=== PATIENT | female | born 1980 | race Caucasian/White ===

== ENCOUNTER 2019-08-03 18:00 | Emergency (ER) | payer BC, SELFPAY ==
--- NOTE | ~2019-08-03 | CT_ITS ---
EXAMINATION: CT abdomen pelvis w con EXAM DATE: 08/03/2019 19:57 INDICATION: Right lower quadrant pain. TECHNIQUE: Spiral CT of the abdomen and pelvis was performed following intravenous injection of 100 m L Omnipaque 350. Axial, coronal and sagittal images were reviewed. The dose-length product (DLP) fo r this examination was 609.21 mGy-cm. The exposure was tailored according to patient size (auto mA e xposure control), and iterative reconstruction (ASIR) was used as additional dose reduction technique . Comparison is made to prior examination from 01/28/2018. FINDINGS: The liver, spleen, adrenal glands and pancreas are unremarkable. The gallbladder is contra cted but otherwise unremarkable. Portal and splenic veins are patent. Kidneys enhance symmetrically . There is no hydronephrosis. The uterus is retroverted and morphologically normal. The bladder is unremarkable. There is no retroperitoneal or pelvic lymphadenopathy. The appendix is normal. The stomach and small bowel are unremarkable. There is expected amount of c olonic stool. No free intraperitoneal gas. The heart is normal in size. There are no pericardial or pleural effusions. The lung bases are unremarkable. The bones are unremarkable. IMPRESSION: 1. No acute intra-abdominal findings. Reviewed, dictated and finalized at location A.
[2019-08-03 18:11] VITALS: BP 147/87; PULSE 83; RESP 20; TEMP 37.4; O2SAT 100
[2019-08-03 18:23] LABS: Basophils Percent Auto 0.3 % (0.2-1.2); Eosinophils Absolute Auto 0.2 K/mm3 (0-0.3); Eosinophils Percent Auto 1.8 % (0-4.4); Hematocrit 40.2 % (37.0-47.0); Hemoglobin 13.6 g/dL (12.0-15.0); Immature Granulocyte Absolute 0.04 K/mm3 (0.00-0.031); Immature Granulocyte Percent A 0.3 % (0-0.5); Lymphocytes Absolute Auto 3.44 K/mm3 (0.9-3.2); Lymphocytes Percent Auto 29.6 % (18.3-44.2); Mean Corpuscular HGB Conc 33.8 g/dl (32-36); Mean Corpuscular Hemoglobin 31.3 pg (26-34); Mean Corpuscular Volume 92.6 fl (80-100); Mean Platelet Volume 9.7 fl (7.4-10.4); Monocytes Absolute Auto 0.9 K/mm3 (0.1-0.6); Monocytes Percent Auto 7.7 % (2.6-8.5); Neutrophils Percent Auto 60.3 % (45.5-73.1); Platelet Count Result 237 k/mm3 (150-375); Red Blood Count 4.34 M/mm3 (4.2-5.4); Red Cell Distribution Width 12.4 % (11.5-14.5); White Blood Count 11.6 K/mm3 (4.5-10.0)
[2019-08-03 18:34] LABS: Alanine Aminotransferase 25 U/L (4-35); Albumin Level 4.1 g/dL (3.5-5.1); Alkaline Phosphatase 72 U/L (38-126); Aspartate Amino Transferase 33 U/L (14-36); Bilirubin,Total 0.3 mg/dL (0.2-1.3); Blood Urea Nitrogen 7 mg/dL (7-17); Calcium 8.6 mg/dL (8.4-10.2); Carbon Dioxide 24 mmol/L (22-30); Chloride 108 mmol/L (98-107); Estimated CRCL calculation 139 ml/min; Estimated Glomerular Filt Rate > 60; Glucose 116 mg/dL (65-105); Lipase 101 U/L (23-300); Potassium 3.7 mmol/L (3.4-5.0); Sodium 136 mmol/L (137-145)
[2019-08-03 18:35] LABS: Add Urine Microscopic? YES; Appearance Urine Clear (Clear); Bilirubin Urine Negative (Negative); Blood Urine 1+ (Negative); Color Urine Colorless (Yellow); Glucose Urine UA Negative (Negative); Ketones Urine Negative (Negative); Leukocyte Esterase Ur Negative LEU/UL (Negative); Nitrate Urine Negative (Negative); Protein Urine Negative (Negative); RBC Urine 0-2 /hpf (0-2); Specific Grav Ur 1.005 (1.001-1.035); Squamous Epithelial Cell Urine Rare /hpf (Few); Urobilinogen Urine Negative mg/dL (<2.0)
--- NOTE | 2019-08-03 19:47 | ED.ABDPAIN ---
HPI - Abdominal Pain General Chief Complaint: Abdominal Pain <Damien Petit PA-C - Last Filed: 08/03/19 20:16> Stated Complaint: appendix? <Damien Petit PA-C - Last Filed: 08/03/19 20:16> Time Seen by Provider: 08/03/19 18:32 <Damien Petit PA-C - Last Filed: 08/03/19 20:16> Source: patient <Damien Petit PA-C - Last Filed: 08/03/19 20:16> Mode of arrival: ambulatory <CHON Patel Last Filed: 08/03/19 20:16> Limitations: no limitations <Damien Petit PA-C - Last Filed: 08/03/19 20:16> History of Present Illness HPI narrative: Patient is a 38-year-old female who presents with 1 day duration of nausea and vomiting patient notes history of similar occurrences in the past with history of constipation patient was seen at urgent care referred to emergency department noting right lower quadrant abdominal tenderness patient denies vaginal bleeding urinary symptoms rectal bleeding melena. Patient has not taken anything for her symptoms presents per private vehicle in no distress <Damien Petit PA-C - Last Filed: 08/03/19 20:16> Related Data Allergies/Adverse Reactions: Allergies Allergy/AdvReac Type Severity Reaction Status Date / Time No Known Allergies Allergy Unverified 03/18/16 22:34 <Damien Petit PA-C - Last Filed: 08/03/19 20:16> Review of Systems Review of Systems: All systems reviewed & are unremarkable except as noted in HPI and below <Damien Petit PA-C - Last Filed: 08/03/19 20:16> [facility] Social History Social History: Social History (Updated 08/03/19 @ 19:47 by Damien Petit PA-C) Smoking status: Current every day smoker <CHON Patel Last Filed: 08/03/19 20:16> Exam Narrative: Exam Narrative: GENERAL: Well-appearing, well-nourished, and in no acute distress. HEAD: Normocephalic, atraumatic. EYES: PERRLA and EOMI. ENT: Nares clear, no rhinorrhea or epistaxis. Mucous membranes moist. CHEST: Clear to auscultation. No respiratory distress. No wheezes rales or rhonchi HEART: Regular rate and rhythm. No murmur heard. Normal peripheral pulses. ABDOMEN: Soft, right lower quadrant tenderness to palpation, nondistended EXTREMITIES: Normal range of motion. No edema. SKIN: Warm, dry, no rash. NEURO: No focal deficits. Alert and oriented x3. PSYCH: Normal mood and affect. <HCON Patel Last Filed: 08/03/19 20:16> Course Course Emergency Course: Patient in the room at this time in no distress resting comfortably feeling better with interventions tolerating p.o. intake felt appropriate for outpatient reevaluation <Damien Petit PA-C - Last Filed: 08/03/19 20:16> Vital Signs Vital signs: Vital Signs Temperature 37.4 C 08/03/19 18:11 Pulse Rate 83 08/03/19 18:11 Respiratory Rate 20 08/03/19 18:11 Blood Pressure 147/87 H 08/03/19 18:11 Pulse Oximetry 100 08/03/19 18:11 Temperature 37.4 C 08/03/19 18:11 Pulse Rate 73 08/03/19 20:30 Respiratory Rate 18 08/03/19 20:30 Blood Pressure 128/81 08/03/19 20:30 Pulse Oximetry 99 08/03/19 20:30 <Damien Petit PA-C - Last Filed: 08/03/19 20:16> Vital Signs Temperature 37.4 C 08/03/19 18:11 Pulse Rate 83 08/03/19 18:11 Respiratory Rate 20 08/03/19 18:11 Blood Pressure 147/87 H 08/03/19 18:11 Pulse Oximetry 100 08/03/19 18:11 Temperature 37.4 C 08/03/19 18:11 Pulse Rate 73 08/03/19 20:30 Respiratory Rate 18 08/03/19 20:30 Blood Pressure 128/81 08/03/19 20:30 Pulse Oximetry 99 08/03/19 20:30 <Angle Moncada MD - Last Filed: 08/10/19 19:06> MDM - Abdominal Pain MDM Narrative Medical decision making narrative: Patient in the room in no distress resting comfortably hydrated given medications with improvement of symptoms afebrile nontoxic-appearing no distress felt appropriate for outpatient reevaluation provided with reasons to return <L
[2019-08-03] MEDS: FAMOTIDINE 20 MG/2 ML VIAL IV PUSH (20:11)
[2019-08-03] MEDS: ONDANSETRON INJ 4 MG/2 ML VIAL IV PUSH (20:11)
[2019-08-03] MEDS: SODIUM CHLORIDE 0.9% IV 1,000 ML 999 ML IV CONT (20:12)
[2019-08-03 20:30] VITALS: BP 128/81; PULSE 73; RESP 18; O2SAT 99
== END 2019-08-03 20:40 | disposition home or self-care (01) ==
PROVIDERS: Emergency Medicine; Emergency Provider Emergency Medicine
DX: R10.31 Right lower quadrant pain (principal); F17.200 Nicotine dependence, unspecified, uncomplicated
CPT/HCPCS: 36415; 74177; 80053; 81001; 81025; 83690; 85025; 96374; 96375; 99284; J0131; J2405; J7030; Q9967

== ENCOUNTER 2019-10-04 09:53 | Emergency (ER) | payer BC, SELFPAY ==
--- NOTE | ~2019-10-04 | CT_ITS ---
EXAMINATION: CT abd pelvis lumbar w con DATE: 10/04/2019 10:58 INDICATION: Low abdominal pain. Back pain. TECHNIQUE: Computed tomography (CT) of the abdomen and pelvis and lumbar spine was performed with 100 mL Omnipaque 350 intravenous contrast. Automated exposure control and iterative reconstruction techn ique were employed. The dose-length product was 567.89 mGy-cm. COMPARISON: CT abdomen and pelvis 08/03/2019, 08/05/2011, CT lumbar spine 03/19/2016 FINDINGS: CT ABDOMEN AND PELVIS: The visualized portions of the lung bases demonstrate mild emphysema and mild atelectasis. No pleural effusion. The heart size is normal. No pericardial effusion. There is a chronic 9 mm lesion of low a ttenuation in left hepatic lobe, likely benign. The gallbladder, spleen, pancreas, adrenal glands, an d kidneys are normal. There are no dilated loops of bowel. The appendix is normal. There is a chronic mildly enlarged gastrohepatic lymph node, likely benign. There is no free intraperitoneal fluid. The re is symmetric prominent fat in the inguinal canals that may be hernias. There is mild osteoarthriti s of the hips. CT LUMBAR SPINE: There is 3 degrees levocurvature of lumbar spine. Vertebral body heights are normal. There is mildly decreased disc height at L4-L5 and moderately decreased disc height at L5-S1. The following disc leve ls are specifically discussed: L1-L2: The disc does not extend beyond the endplate margin. There is moderate bilateral facet joint o steoarthritis. There is no neural foraminal stenosis. There is no central canal stenosis. L2-L3: The disc does not extend beyond the endplate margin. There is severe right and moderate left f acet joint osteoarthritis. There is no neural foraminal stenosis. There is no central canal stenosis. L3-L4: The disc does not extend beyond the endplate margin. There is moderate bilateral facet joint o steoarthritis. There is no neural foraminal stenosis. There is no central canal stenosis. L4-L5: The disc is bulging. There is mild bilateral facet joint osteoarthritis. There is mild bilater al neural foraminal stenosis. There is mild central canal stenosis. L5-S1: The disc is bulging. There is severe bilateral facet joint osteoarthritis. There is moderate b ilateral neural foraminal stenosis. There is mild central canal stenosis. IMPRESSION: 1. Mild emphysema. 2. Symmetric prominent fat in the inguinal canals that may be small hernias. 3. Moderate lumbar spondylosis. Reviewed, dictated and finalized at location B.
[2019-10-04 10:13] VITALS: BP 145/67; PULSE 76; RESP 21; TEMP 36.6; O2SAT 98
[2019-10-04 10:22] LABS: Basophils Percent Auto 0.4 % (0.2-1.2); Eosinophils Absolute Auto 0.2 K/mm3 (0-0.3); Eosinophils Percent Auto 1.8 % (0-4.4); Hematocrit 43.4 % (37.0-47.0); Hemoglobin 14.6 g/dL (12.0-15.0); Immature Granulocyte Absolute 0.03 K/mm3 (0.00-0.031); Immature Granulocyte Percent A 0.3 % (0-0.5); Lymphocytes Absolute Auto 2.59 K/mm3 (0.9-3.2); Lymphocytes Percent Auto 28.6 % (18.3-44.2); Mean Corpuscular HGB Conc 33.6 g/dl (32-36); Mean Corpuscular Hemoglobin 30.9 pg (26-34); Mean Corpuscular Volume 91.9 fl (80-100); Mean Platelet Volume 9.9 fl (7.4-10.4); Monocytes Absolute Auto 0.6 K/mm3 (0.1-0.6); Monocytes Percent Auto 7.1 % (2.6-8.5); Neutrophils Absolute Auto 5.6 K/mm3 (1.3-6.7); Neutrophils Percent Auto 61.8 % (45.5-73.1); Platelet Count Result 240 k/mm3 (150-375); Red Blood Count 4.72 M/mm3 (4.2-5.4); Red Cell Distribution Width 12.3 % (11.5-14.5); White Blood Count 9.1 K/mm3 (4.5-10.0)
[2019-10-04 10:31] LABS: Add Urine Microscopic? YES; Appearance Urine Clear (Clear); Bacteria Urine Trace /hpf; Bilirubin Urine Negative (Negative); Blood Urine 3+ (Negative); Color Urine Yellow (Yellow); Glucose Urine UA Negative (Negative); Ketones Urine Negative (Negative); Leukocyte Esterase Ur Negative LEU/UL (Negative); Mucus Urine Rare /lpf; Nitrate Urine Negative (Negative); Protein Urine Negative (Negative); RBC Urine >75 /hpf (0-2); Specific Grav Ur 1.019 (1.001-1.035); Squamous Epithelial Cell Urine Few /hpf (Few); Urobilinogen Urine Negative mg/dL (<2.0); WBC Urine 0-3 /hpf
[2019-10-04 10:34] LABS: Alanine Aminotransferase 26 U/L (4-35); Albumin Level 4.3 g/dL (3.5-5.1); Alkaline Phosphatase 84 U/L (38-126); Anion Gap 7 mmol/L (8-16); Aspartate Amino Transferase 31 U/L (14-36); Bilirubin,Total 0.2 mg/dL (0.2-1.3); Blood Urea Nitrogen 6 mg/dL (7-17); Calcium 8.6 mg/dL (8.4-10.2); Carbon Dioxide 22 mmol/L (22-30); Chloride 109 mmol/L (98-107); Estimated CRCL calculation 98 ml/min; Estimated Glomerular Filt Rate > 60; Glucose 105 mg/dL (65-105); Lipase 112 U/L (23-300); Potassium 3.9 mmol/L (3.4-5.0); Sodium 138 mmol/L (137-145)
--- NOTE | 2019-10-04 10:35 | ED.ABDPAIN ---
HPI - Abdominal Pain General Chief Complaint: Abdominal Pain <CHON Gross Last Filed: 10/04/19 12:57> Stated Complaint: STOMACH SWOLLEN, PAIN <CHON Gross Last Filed: 10/04/19 12:57> Time Seen by Provider: 10/04/19 10:08 <CHON Gross Last Filed: 10/04/19 12:57> Source: patient <CHON Gross Last Filed: 10/04/19 12:57> Mode of arrival: wheelchair <CHON Gross Last Filed: 10/04/19 12:57> Limitations: no limitations <CHON Gross Last Filed: 10/04/19 12:57> History of Present Illness HPI narrative: This is a 38-year-old female that presents to the emergency department for low back pain x2 days. No known recent injury or trauma. Reports history of lumbar disc replacement. Reports she has had low back pain that radiates down her legs and into her pelvis. Pain is worse with movement and relieved with rest. Also reports that her abdomen and cervix feel swollen. Reports she started her menstrual cycle on Friday. Reports the pain has made it difficult to walk. She has been taking anti-inflammatories and Tylenol with little relief. Denies fever, saddle anesthesia, or bowel/bladder incontinence. <CHON Gross Last Filed: 10/04/19 12:57> Related Data Allergies/Adverse Reactions: Allergies Allergy/AdvReac Type Severity Reaction Status Date / Time No Known Allergies Allergy Unverified 03/18/16 22:34 <CHON Gross Last Filed: 10/04/19 12:57> Review of Systems Review of Systems: Narrative: CONSTITUTIONAL: Denies fever GASTROINTESTINAL: Denies abdominal pain, nausea, vomiting GENITOURINARY: Reports hematuria. Denies dysuria SKIN: Denies rash MUSCULOSKELETAL: Reports back pain, joint pain, and myalgia. NEUROLOGIC: Denies numbness, or weakness. <CHON Gross Last Filed: 10/04/19 12:57> All systems reviewed & are unremarkable except as noted in HPI and below <Cara Engle PA-C - Last Filed: 10/04/19 12:57> PMFSH Surgical History Surgical History: Surgical History (Updated 10/04/19 @ 10:36 by Cara Engle PA-C) H/O lumbosacral spine surgery <Cara Engle PA-C - Last Filed: 10/04/19 12:57> Social History Social History: Social History (Updated 10/04/19 @ 10:36 by Cara Engle PA-C) Smoking status: Current every day smoker Substance use: never Gender identity (if verbalized by the patient): Female <Cara Engle PA-C - Last Filed: 10/04/19 12:57> Exam Narrative: Exam Narrative: GENERAL: Well-appearing, well-nourished, and in no acute distress. HEAD: Normocephalic, atraumatic. EYES: EOMI. CHEST: Clear to auscultation. No respiratory distress. No wheezes rales or rhonchi HEART: Regular rate and rhythm. No murmur heard. Normal peripheral pulses. ABDOMEN: Soft, nontender, nondistended, normal active bowel sounds. BACK: No midline spinal tenderness EXTREMITIES: Normal range of motion. No edema. Strength equal in bilateral lower extremities (5/5) SKIN: Warm, dry, no rash. NEURO: No focal deficits. Alert and oriented x3. PSYCH: Normal mood and affect PELVIC: Normal external genitalia. Normal appearing cervix. No CMT. Small amount of blood slowly oozing from the cervix <Cara Engle PA-C - Last Filed: 10/04/19 12:57> Course Vital Signs Vital signs: Vital Signs Temperature 36.6 C 10/04/19 10:13 Pulse Rate 76 10/04/19 10:13 Respiratory Rate 21 H 10/04/19 10:13 Blood Pressure 145/67 H 10/04/19 10:13 Pulse Oximetry 98 10/04/19 10:13 Temperature 36.6 C 10/04/19 10:13 Pulse Rate 64 10/04/19 13:06 Respiratory Rate 14 10/04/19 13:06 Blood Pressure 110/67 10/04/19 13:06 Pulse Oximetry 100 10/04/19 13:06 <Cara Engle PA-C - Last Filed: 10/04/19 12:57> Vital Signs Temperature 36.6 C 10/04/19 10:13 Pulse Rate 76 10/04/19 10:13 Respiratory Rate 21 H 10/04/19 10:13 Blood Pr
[2019-10-04 11:38] LABS: CRP < 0.5 mg/dL (<1.0)
[2019-10-04 11:48] VITALS: BP 107/63; PULSE 65; RESP 17; O2SAT 98
[2019-10-04 11:53] LABS: Erythrocyte Sedimentation Rate 15 mm/hr (0-20)
[2019-10-04 12:04] LABS: Lactic Acid Reflex 0.8 mmol/L (0.7-2.1)
[2019-10-04] MEDS: KETOROLAC 30 MG/ML VIAL (*BKC) IV PUSH (12:10)
[2019-10-04 13:06] VITALS: BP 110/67; PULSE 64; RESP 14; O2SAT 100
== END 2019-10-04 13:07 | disposition home or self-care (01) ==
PROVIDERS: Physician Assistant; Emergency Provider Emergency Medicine
DX: M54.42 Lumbago with sciatica, left side (principal); M54.41 Lumbago with sciatica, right side; F17.200 Nicotine dependence, unspecified, uncomplicated; J43.9 Emphysema, unspecified; M47.816 Spondylosis without myelopathy or radiculopathy, lumbar region
CPT/HCPCS: 36415; 72132; 74177; 80053; 81001; 81025; 83605; 83690; 85025; 85652; 86140; 87070; 87491; 87591; 87808; 96365; 96375; 99284; J0131; J1885; J3360; Q9967

== ENCOUNTER 2021-01-19 10:27 | Emergency (ER) | payer OTHER, SELFPAY ==
--- NOTE | ~2021-01-19 | CT_ITS ---
EXAMINATION: CT abdomen pelvis w con INDICATION: Left lower quadrant pain TECHNIQUE: Computed tomographic images of the abdomen and pelvis were obtained after the administrati on of 100 cc of Omnipaque 350 intravenous contrast. The dose-length product (DLP) was 609.57 mGy-cm. Automated exposure control and iterative reconstruction technique were employed. COMPARISON: 10/14/2019 FINDINGS: Minimal dependent atelectasis and emphysema are present in the lung bases. The heart size i s normal. The liver, spleen, pancreas, gallbladder, and adrenal glands are normal. The kidneys are un remarkable. No pathologically enlarged abdominal or pelvic lymph nodes are identified. There is no fr ee intraperitoneal gas or evidence of bowel obstruction. The appendix is normal. A trace amount of fr ee fluid in the pelvis is likely physiologic. There is an enhancing corpus luteum of the left ovary. There is moderate lumbar spondylosis at L5-S1. IMPRESSION: 1. No CT correlate for the patient's symptoms. Reviewed, dictated and finalized at location A. [place] [employer]
[2021-01-19 10:40] VITALS: BP 150/87; PULSE 90; RESP 16; TEMP 36.9; O2SAT 99
[2021-01-19] MEDS: SODIUM CHLORIDE 0.9% IV 1,000 ML 999 ML IV CONT (11:38)
[2021-01-19 11:49] LABS: Basophils Percent Auto 0.4 % (0.2-1.2); Eosinophils Absolute Auto 0.1 K/mm3 (0-0.3); Eosinophils Percent Auto 1.1 % (0-4.4); Hematocrit 40.1 % (37.0-47.0); Hemoglobin 13.8 g/dL (12.0-15.0); Immature Granulocyte Absolute 0.05 K/mm3 (0.00-0.031); Immature Granulocyte Percent A 0.4 % (0-0.5); Lymphocytes Percent Auto 27.8 % (18.3-44.2); Mean Corpuscular HGB Conc 34.4 g/dl (32-36); Mean Platelet Volume 9.8 fl (7.4-10.4); Monocytes Absolute Auto 0.8 K/mm3 (0.1-0.6); Monocytes Percent Auto 7.4 % (2.6-8.5); Neutrophils Percent Auto 62.9 % (45.5-73.1); Platelet Count Result 267 k/mm3 (150-375); Red Blood Count 4.31 M/mm3 (4.2-5.4); Red Cell Distribution Width 12.2 % (11.5-14.5); White Blood Count 11.1 K/mm3 (4.5-10.0)
[2021-01-19 11:56] LABS: Lipase 69 U/L (23-300)
[2021-01-19 11:57] LABS: Alanine Aminotransferase 28 U/L (4-35); Albumin Level 4.2 g/dL (3.5-5.1); Alkaline Phosphatase 78 U/L (38-126); Anion Gap 5 mmol/L (8-16); Aspartate Amino Transferase 34 U/L (14-36); Bilirubin,Total 0.5 mg/dL (0.2-1.3); Blood Urea Nitrogen 8 mg/dL (7-17); Carbon Dioxide 27 mmol/L (22-30); Chloride 107 mmol/L (98-107); Estimated CRCL calculation 116 ml/min; Estimated Glomerular Filt Rate > 60; Glucose 96 mg/dL (65-110); Potassium 3.8 mmol/L (3.4-5.0); Sodium 139 mmol/L (137-145)
--- NOTE | 2021-01-19 12:00 | ED.ABDPAIN ---
HPI - Abdominal Pain General Chief Complaint: Abdominal Pain Stated Complaint: abd pain Time Seen by Provider: 01/19/21 11:23 Source: patient History of Present Illness HPI narrative: Patient presents with abdominal pain nausea vomiting and diarrhea. Reports last night she had a 45-minute episode of severe nausea vomiting and diarrhea. Since then she has continued to have left-sided abdominal pain. Pain is achy, constant, no clear aggravating or alleviating factors is primarily her left lower quadrant, no radiation. Reports she has continued to have mucousy bloody stools. She will have the urge to go to the bathroom when she sits down she is unable to have a bowel movement but she wipes and she notes mucousy bloody stool Related Data Allergies Allergy/AdvReac Type Severity Reaction Status Date / Time No Known Allergies Allergy Unverified 03/18/16 22:34 Review of Systems Review of Systems: CONSTITUTIONAL: Denies fever, chills, or sweats. EYES: Denies visual changes, redness, or discharge. ENT: Denies rhinorrhea, congestion, sore throat, or otalgia. CARDIOVASCULAR: Denies chest pain, palpitations, or edema. RESPIRATORY: Denies cough or dyspnea. GASTROINTESTINAL: Abdominal pain, nausea, vomiting, diarrhea GENITOURINARY: Denies dysuria or hematuria. SKIN: Denies rash or itching. MUSCULOSKELETAL: Denies back pain, joint pain, or myalgia. NEUROLOGIC: Denies headache, numbness, dizziness, or weakness. PSYCHIATRIC: Denies anxiety or depression. All systems reviewed & are unremarkable except as noted in HPI and below PMFSH Past Medical History Medical History (Updated 01/19/21 @ 13:34 by Bubba Gill MD) Patient denies significant medical history Surgical History Surgical History H/O lumbosacral spine surgery Social History Social History Smoking status: Current every day smoker Substance use: never Gender identity (if verbalized by the patient): Female Exam Narrative: GENERAL: Well-appearing, well-nourished, and in no acute distress. HEAD: Normocephalic, atraumatic. EYES: PERRLA and EOMI. ENT: Nares clear, no rhinorrhea or epistaxis. Mucous membranes moist. NECK: Supple. No masses. No JVD CHEST: Clear to auscultation. No respiratory distress. No wheezes rales or rhonchi HEART: Regular rate and rhythm. No murmur heard. Normal peripheral pulses. ABDOMEN: Moderate left lower quadrant abdominal pain no rebound soft, nondistended, normal active bowel sounds. EXTREMITIES: Normal range of motion. No edema. SKIN: Warm, dry, no rash. NEURO: No focal deficits. Alert and oriented x3. PSYCH: Normal mood and affect. Course Reevaluation(s) Reevaluation #1: Patient reports feeling much improved results and plan reviewed with patient. Patient comfortable outpatient plan. Date: 01/19/21 Time: 13:29 Vital Signs Vital signs: Vital Signs Temperature 36.9 C 01/19/21 10:40 Pulse Rate 90 01/19/21 10:40 Respiratory Rate 16 01/19/21 10:40 Blood Pressure 150/87 H 01/19/21 10:40 Pulse Oximetry 99 01/19/21 10:40 Temperature 36.9 C 01/19/21 10:40 Pulse Rate 87 01/19/21 13:39 Respiratory Rate 17 01/19/21 13:39 Blood Pressure 148/83 H 01/19/21 13:39 Pulse Oximetry 99 01/19/21 13:39 MDM - Abdominal Pain MDM Narrative Medical decision making narrative: H&P as above, vss, pt looks clinically well, exam left lower quadrant abdominal pain, labs clinically unremarkable, img clinically unremarkable, additional labs/img considered. symptomatic relief available as needed, on reevaluation pt continues to looks clinically well patient reports feeling improved. Symptoms remain of unclear etiology may represent viral process versus foodborne illness, dns severe sepsis, severe dehydration, diverticulitis, perforation. plan to tx/monitor as op w/ pcm f/u findings/plan discussed with pt, pt agree
[2021-01-19 12:21] LABS: Prothrombin Time 13.1 Seconds (11.1-14.7)
[2021-01-19 12:22] LABS: Partial Thromboplastin Time 33.2 SECONDS (22.3-36.8)
[2021-01-19 13:39] VITALS: BP 148/83; PULSE 87; RESP 17; O2SAT 99
== END 2021-01-19 13:40 | disposition home or self-care (01) ==
PROVIDERS: Emergency Provider Emergency Medicine; PCP Family Medicine
DX: R11.2 Nausea with vomiting, unspecified (principal); R10.32 Left lower quadrant pain; R19.7 Diarrhea, unspecified; F17.200 Nicotine dependence, unspecified, uncomplicated
CPT/HCPCS: 36415; 74177; 80053; 81025; 83690; 85025; 85610; 85730; 86850; 86880; 86900; 86901; 86902; 96365; 99284; J0131; J7030; Q9967

== ENCOUNTER 2021-07-25 15:48 | Emergency (ER) | payer OTHER, SELFPAY ==
--- NOTE | ~2021-07-25 | CT_ITS ---
EXAMINATION: CT abdomen pelvis wo con DATE: 07/25/2021 19:34 INDICATION: Right upper quadrant pain TECHNIQUE: Computed tomography (CT) of the abdomen and pelvis was performed without intravenous contr ast. The dose-length product (DLP) was 539.22 mGy-cm. Automated exposure control and iterative recons truction technique were employed. COMPARISON: 01/19/2021 FINDINGS: Minimal dependent atelectasis and emphysema are present in the lung bases. The heart size i s normal. The liver, spleen, pancreas, gallbladder, and adrenal glands are normal. The kidneys are un remarkable. No pathologically enlarged abdominal or pelvic lymph nodes are identified. The appendix i s normal. There is no free intraperitoneal gas or evidence of bowel obstruction. There is moderate jamison mbar spondylosis at L5-S1. IMPRESSION: 1. No CT correlate for the patient's symptoms. Reviewed, dictated and finalized at location F.
--- NOTE | ~2021-07-25 | XR_ITS ---
EXAMINATION: XR chest 2V DATE: 07/25/2021 18:59 INDICATION: Upper abdominal pain TECHNIQUE: PA and lateral views of the chest are obtained. COMPARISON: 06/19/2013 FINDINGS: The lungs are free of acute opacities. There is no pleural effusion or pneumothorax. The ca rdiomediastinal silhouette is normal. There is moderate thoracic spondylosis. There are partially rolly ged surgical changes in the lower cervical spine. IMPRESSION: 1. No acute cardiopulmonary abnormality. Reviewed, dictated and finalized at location F.
--- NOTE | ~2021-07-25 | US_ITS ---
EXAMINATION: US abdomen limited DATE: 07/25/2021 17:47 INDICATION: Right upper quadrant pain TECHNIQUE: Multiple grayscale and Doppler ultrasound images of the abdomen were obtained. COMPARISON: CT, 01/19/2021 FINDINGS: Bowel gas obscures visualization of the pancreas. The visualized portions of the pancreas a re unremarkable. There is a 1.3 cm hemangioma in the left hepatic lobe. The liver is otherwise normal with normal echogenicity and echotexture. No surface nodularity. Normal hepatopetal flow in the main portal vein. The gallbladder is contracted. No abnormal wall thickening, pericholecystic fluid or st ones are identified. The normal common bile duct measures 3 mm. There was no sonographic Nogueira sign. IMPRESSION: 1. Normal sonographic study of the gallbladder. Reviewed, dictated and finalized at location F.
[2021-07-25 15:51] VITALS: BP 138/57; PULSE 98; RESP 16; TEMP 36.5; O2SAT 99
[2021-07-25 16:07] LABS: Basophils Absolute Auto 0.1 K/mm3 (0.0-0.1); Basophils Percent Auto 0.4 % (0.2-1.2); Eosinophils Absolute Auto 0.1 K/mm3 (0-0.3); Eosinophils Percent Auto 0.8 % (0-4.4); Hematocrit 40.8 % (37.0-47.0); Hemoglobin 13.6 g/dL (12.0-15.0); Immature Granulocyte Absolute 0.04 K/mm3 (0.00-0.031); Immature Granulocyte Percent A 0.3 % (0-0.5); Lymphocytes Absolute Auto 3.05 K/mm3 (0.9-3.2); Lymphocytes Percent Auto 25.3 % (18.3-44.2); Mean Corpuscular HGB Conc 33.3 g/dl (32-36); Mean Corpuscular Hemoglobin 30.9 pg (26-34); Mean Corpuscular Volume 92.7 fl (80-100); Mean Platelet Volume 9.7 fl (7.4-10.4); Monocytes Absolute Auto 0.9 K/mm3 (0.1-0.6); Monocytes Percent Auto 7.1 % (2.6-8.5); Neutrophils Absolute Auto 7.9 K/mm3 (1.3-6.7); Neutrophils Percent Auto 66.1 % (45.5-73.1); Platelet Count Result 270 k/mm3 (150-375); Red Cell Distribution Width 12.6 % (11.5-14.5)
[2021-07-25 16:17] LABS: Alanine Aminotransferase 28 U/L (6-35); Albumin Level 4.6 g/dL (3.5-5.1); Alkaline Phosphatase 77 U/L (38-126); Anion Gap 7 mmol/L (8-16); Aspartate Amino Transferase 37 U/L (14-36); Bilirubin,Total 0.3 mg/dL (0.2-1.3); Blood Urea Nitrogen 10 mg/dL (7-17); Calcium 8.7 mg/dL (8.4-10.2); Carbon Dioxide 26 mmol/L (22-30); Chloride 106 mmol/L (98-107); Estimated CRCL calculation 87 ml/min; Estimated Glomerular Filt Rate > 60; Glucose 94 mg/dL (65-110); Lipase 103 U/L (23-300); Potassium 3.8 mmol/L (3.4-5.0); Sodium 139 mmol/L (137-145)
[2021-07-25 16:30] LABS: Appearance Urine Clear (Clear); Bilirubin Urine Negative (Negative); Color Urine Yellow (Yellow); Glucose Urine UA Negative (Negative); Ketones Urine Negative (Negative); Leukocyte Esterase Ur Negative LEU/UL (Negative); Nitrate Urine Negative (Negative); Protein Urine Negative (Negative); Specific Grav Ur 1.025 (1.001-1.035); Urobilinogen Urine 0.2 mg/dL (<2.0)
[2021-07-25 16:33] LABS: Add Urine Microscopic? YES; Blood Urine Trace-Intact (Negative)
[2021-07-25 16:36] LABS: Mucus Urine Rare /lpf; Squamous Epithelial Cell Urine Few /hpf (Few); WBC Urine 0-3 /hpf
--- NOTE | 2021-07-25 17:30 | ED.ABDPAIN ---
HPI - Abdominal Pain General Chief Complaint: Abdominal Pain Stated Complaint: right side pain Time Seen by Provider: 07/25/21 17:20 Source: patient Mode of arrival: ambulatory Limitations: no limitations History of Present Illness HPI narrative: This is a 40 year old female that presents to the ER for RUQ pain. Intermittent over the last couple of months. No known alleviating or exacerbating factors. Reports today she had eaten a fried chicken sandwich before the pain started. It is intermittent and crampy in nature. Associated with nausea. Denies fever, vomiting, or dysuria. Related Data Home Medications Medication Instructions Recorded Confirmed No Home Medications 07/25/21 07/25/21 Allergies Allergy/AdvReac Type Severity Reaction Status Date / Time No Known Allergies Allergy Verified 07/25/21 17:16 Review of Systems Review of Systems: CONSTITUTIONAL: Denies fever GASTROINTESTINAL: Reports abdominal pain, nausea. Denies vomiting, or diarrhea. GENITOURINARY: Denies dysuria or hematuria. All systems reviewed & are unremarkable except as noted in HPI and below PMFSH Past Medical History Medical History (Updated 07/25/21 @ 21:18 by Cara Engle PA-C) Patient denies significant medical history Surgical History Surgical History (Updated 07/25/21 @ 17:36 by Cara Engle PA-C) H/O lumbosacral spine surgery History of tubal ligation Social History Social History Smoking status: Current every day smoker Substance use: never Gender identity (if verbalized by the patient): Female Exam Narrative: GENERAL: Well-appearing, well-nourished, and in no acute distress. HEAD: Normocephalic, atraumatic. EYES: EOMI. CHEST: Clear to auscultation. No respiratory distress. No wheezes rales or rhonchi HEART: Regular rate and rhythm. No murmur heard. Normal peripheral pulses. ABDOMEN: Soft, nondistended, normal active bowel sounds. Tender to palpation in the right upper quadrant, without guarding. No CVA tenderness EXTREMITIES: Normal range of motion. No edema. SKIN: Warm, dry, no rash. NEURO: No focal deficits. Alert and oriented x3. PSYCH: Normal mood and affect Course Vital Signs Vital signs: Vital Signs Temperature 97.7 F 07/25/21 15:51 Pulse Rate 98 07/25/21 15:51 Respiratory Rate 16 07/25/21 15:51 Blood Pressure 138/57 L 07/25/21 15:51 Pulse Oximetry 99 07/25/21 15:51 Oxygen Delivery Room Air 07/25/21 15:51 Temperature 97.7 F 07/25/21 15:51 Pulse Rate 59 L 07/25/21 20:45 Respiratory Rate 18 07/25/21 20:45 Blood Pressure 120/52 L 07/25/21 20:45 Pulse Oximetry 98 07/25/21 20:45 Oxygen Delivery Room Air 07/25/21 15:51 MDM - Abdominal Pain MDM Narrative Medical decision making narrative: Patient presents to the emergency department for intermittent right upper quadrant pain noted over the last couple of months. She is afebrile and nontoxic-appearing. Her vitals are stable. CBC with leukocytosis to 12. Metabolic panel with mild AST elevation at 37. Lipase is normal. UA without evidence of infection. Bedside test is negative. EKG without concerning changes. Chest x-ray without acute cardiopulmonary abnormality. Right upper quadrant ultrasound is normal. CT scan of the abdomen and pelvis is without acute findings. Patient was updated on case findings. Reports improvement in pain with IV pain medication and Protonix. She is stable and felt appropriate for further outpatient evaluation. Instructed to follow-up with primary care doctor. She was given warnings to return to the ER Lab Data Attestation: I reviewed the patient's lab results. Result diagrams: 07/25/21 16:01 07/25/21 16:01 Labs: Lab Results 07/25/21 07/25/21 07/25/21 Range/Units 16:01 16:01 16:11 WBC 12.0 H (4.5-10.0) K/mm3 RBC 4.40 (4.2-5.4) M/mm3 Hgb 13.6 (12.0-15.
[2021-07-25] MEDS: ONDANSETRON INJ 4 MG/2 ML VIAL IV PUSH (17:48)
[2021-07-25] MEDS: MORPHINE SULFATE (*CRX) 4 MG/ML INJ IV PUSH (17:48)
--- NOTE | 2021-07-25 18:46 | ECG_ITS ---
Measurements Intervals [place] Rate: 55 P: 36 [place]: 169 QRS: 34 QRSD: 102 T: 56 QT: 457 QTc: 440 Interpretive Statements SINUS BRADYCARDIA NO PREVIOUS ECG AVAILABLE FOR COMPARISON Electronically Signed On 07-25-2021 21:44:50 CDT by Jose De Jesus Bashir M.D.
[2021-07-25] MEDS: KETOROLAC 15 MG/ML VIAL (*BKC) IV PUSH (20:31)
[2021-07-25] MEDS: PANTOPRAZOLE SODIUM IV 40 MG VIAL IV PUSH (20:44)
[2021-07-25 20:45] VITALS: BP 120/52; PULSE 59; RESP 18; O2SAT 98
== END 2021-07-25 21:28 | disposition home or self-care (01) ==
PROVIDERS: Emergency Medicine; Emergency Provider General Practice; PCP Family Medicine
DX: R10.11 Right upper quadrant pain (principal); F17.200 Nicotine dependence, unspecified, uncomplicated
CPT/HCPCS: 36415; 71046; 74176; 76705; 80053; 81001; 81025; 83690; 85025; 93005; 96365; 96375; 99284; C9113; J0131; J1885; J2270; J2405

== ENCOUNTER 2021-09-24 01:39 | Day surgery (SDC) | payer OTHER, SELFPAY ==
[2021-09-24 08:47] VITALS: BMI 30.7
[2021-09-24 08:50] VITALS: BP 136/65; PULSE 66; RESP 16; TEMP 36.1; O2SAT 100
[2021-09-24] MEDS: LACTATED RINGERS 1,000 ML 150 ML IV CONT (08:56)
--- NOTE | 2021-09-24 09:19 | P.PNAN_ITS ---
Anes - Initial Pre Proc Eval Procedure: Operation Date: 09/24/21 10:00 Proposed Procedures p Esophagogastroduodenoscopy - Jasson Solomon MD Date/Time: 09/24/21 09:19 Surgeon: Jasson Solomon MD Pre Op Diagnosis: RUQP, nausea, vomiting Patient Data Age: 40 Gender: F Height: 1.63 m Weight: 81.3 kg Last Vital Signs Temp 96.9 F L 09/24/21 08:50 Pulse 66 09/24/21 08:50 Resp 16 09/24/21 08:50 BP 136/65 09/24/21 08:50 Pulse Ox 100 09/24/21 08:50 O2 Del Method Room Air 09/24/21 08:50 Allergies Allergy/AdvReac Type Severity Reaction Status Date / Time No Known Allergies Allergy Verified 07/31/21 10:10 Home Medications Medication Instructions Recorded Confirmed Type acetaminophen 500 mg tablet 500 mg PO Q6H PRN Headache 07/31/21 09/05/21 History (Tylenol Extra Strength) omeprazole magnesium 2.5 mg oral 10 mg PO DAILY 07/31/21 09/05/21 History suspension,delayed release (Prilosec) Patient hx anesthesia problems: none Family hx anesthesia problems: none Results Review: All pre-operative results and documents have been reviewed as part of the pre- operative evaluation. [facility] Past Medical History Medical History Patient denies significant medical history Right upper quadrant pain Tobacco use Surgical History Surgical History H/O lumbosacral spine surgery History of tubal ligation Social History Social History Smoking packs per day: 0.5 Smoking cigarettes per day: 10.0 Years smoked: 25 Smoking pack-years: 12.50 Smoking status: Current every day smoker Tobacco type: cigarettes Substance use: never Substance use type: marijuana Living arrangements: with family Gender identity (if verbalized by the patient): Female Anes - Eval Final PreProcedure Day of Procedure 09/24/21 09:19 Patient weight: obese Heart: regular rate and rhythm Lungs: clear to auscultation Airway: Mallampati scale class II Neurological: alert and oriented Last oral intake: >/= 8 hours ASA classification: II Emergent: no Anesthetic plan: proceed Anesthesia type and monitoring: general GIVS and standard monitoring Results Review: All pre-operative results and documents have been reviewed as part of the pre- operative evaluation. Informed Consent: The patient's anesthetic plan and its attendant risks and benefits were discussed with the patient/family/POA. Questions were solicited and answers provided to the satisfaction of the patient/family/POA.
--- NOTE | 2021-09-24 09:36 | PM.HPGS ---
History of Present Illness History of Present Illness Consent: Risks, benefits, and alternatives have been discussed and questions answered. Patient agrees to proceed with procedure. Chief complaint: RUQP, nausea, vomiting Narrative: Colleen Amezquita is a 40 year old female with intermittent ruq pain and nausea (she is not taking antiemetics but willing to try), never had egd, using omeprazole with some relief Review of Systems Constitutional: Constitutional: Denies headache(s) and Denies weakness Eyes: Eyes: Denies blurry vision ENT: Reports Normal hearing present, Denies headache(s) and Denies neck pain Cardiovascular: Cardiovascular: Denies chest pain and Denies dyspnea Respiratory: Respiratory: Denies dyspnea Gastrointestinal: Gastrointestinal: Reports no additional gastrointestinal complaints Genitourinary: Genitourinary: Denies dysuria Musculoskeletal: Musculoskeletal: Denies neck pain Integumentary/Breasts: Skin/Breast: Denies dry skin Neurologic: Reports Normal hearing present, Denies headache(s) and Denies weakness Psychiatric: Psychiatric: Denies anxiety Endocrine: Endocrine: Denies change in body appearance Hematologic/Lymphatic: Hematologic/Lymphatic: Denies easy bleeding Allergic/Immunologic: Allergic/Immunologic: Denies urticaria PMFSH Past Medical History Medical History Patient denies significant medical history Right upper quadrant pain Tobacco use Surgical History Surgical History H/O lumbosacral spine surgery History of tubal ligation Social History Social History Smoking packs per day: 0.5 Smoking cigarettes per day: 10.0 Years smoked: 25 Smoking pack-years: 12.50 Smoking status: Current every day smoker Tobacco type: cigarettes Substance use: never Substance use type: marijuana Living arrangements: with family Gender identity (if verbalized by the patient): Female Meds Home Medications and Allergies Home Medications Medication Instructions Recorded Confirmed Type acetaminophen 500 mg tablet 500 mg PO Q6H PRN Headache 07/31/21 09/05/21 History (Tylenol Extra Strength) omeprazole magnesium 2.5 mg oral 10 mg PO DAILY 07/31/21 09/05/21 History suspension,delayed release (Prilosec) Allergies Allergy/AdvReac Type Severity Reaction Status Date / Time No Known Allergies Allergy Verified 07/31/21 10:10 Vital Signs Vital Signs - 24 hr 09/24/21 08:50 Temperature 96.9 F L Pulse Rate 66 Respiratory Rate 16 Blood Pressure 136/65 Pulse Oximetry 100 Oxygen Delivery Room Air Exam Const: General: comfortable and no acute distress HENMT: General nose exam: Normal nares present Eyes: General: appearance normal, both eyes and all related structures Neck: Neck: no JVD Resp: Auscultation: clear to auscultation bilaterally Cardio: Rate: regular rate Rhythm: regular rhythm GI: Inspection: non-distended GI Palp: Yes Soft to palpation Skin: General skin exam: normal color Neuro: General: gait normal Speech: normal speech Extrem: General: normal to inspection Psych: Mental Status: mental status grossly normal Assessment and Plan Assessment and plan (1) Right upper quadrant pain: Code(s): R10.11 - Right upper quadrant pain Status: Acute Assessment and Plan: egd with bx also will prescribe zofran prn
[2021-09-24 09:55] VITALS: BP 121/72; PULSE 60; RESP 18; O2SAT 100
[2021-09-24 10:05] VITALS: BP 138/64; PULSE 57; RESP 17; O2SAT 100
[2021-09-24 10:15] VITALS: BP 124/73; PULSE 56; RESP 17; O2SAT 100
== END 2021-09-24 10:32 | disposition home or self-care (01) ==
PROVIDERS: PCP Family Medicine; Visit Provider Internal Medicine Gastroenterology
PROC: 0DJ08ZZ Inspection of Upper Intestinal Tract, Via Natural or Artificial Opening Endoscopic (ICD-10-PCS; CPT 43235; principal; 2021-09-24 10:00)
DX: R10.11 Right upper quadrant pain (principal); K29.50 Unspecified chronic gastritis without bleeding; R11.2 Nausea with vomiting, unspecified; F17.210 Nicotine dependence, cigarettes, uncomplicated; F12.90 Cannabis use, unspecified, uncomplicated; E66.9 Obesity, unspecified; Z68.30 Body mass index [BMI] 30.0-30.9, adult
CPT/HCPCS: 43239; 88305; 88342; J2704; J7120

== ENCOUNTER 2022-05-02 08:10 | Outpatient (CLI) | payer OTHER, SELFPAY ==
--- NOTE | ~2022-05-02 | NM_ITS ---
EXAM: NM gastric emptying study DATE: 05/02/2022 12:53 INDICATION: Nausea. TECHNIQUE: A gastric emptying study was performed using the methodology of Les PETER, et al. J Nucl Med 2007; 48:568-572. The patient was given a meal consisting of 2 scrambled eggs labeled with 1 mCi Tc-99m sulfur colloid, 2 slices of toast, two packages of jam, and approximately 120 mL of water. Si multaneous anterior and posterior 1-min images of the abdomen were obtained with the patient supine a t multiple time points over a total period of 4 hours. The geometric mean of anterior and posterior v iews was determined, and the percentage retention was calculated for each time point. COMPARISON: CT abdomen and pelvis 07/25/2021 FINDINGS: Gastric retention of the radiotracer-labeled meal was 75%, 58%, and 33% at the 1-hour, 2-h our, and 4-hour time points, respectively. With this technique, apparent rapid gastric emptying is lu ggested by <30% gastric retention at 1 hour. Delayed gastric emptying is defined by gastric retention of >90% at 1 hour, >60% retention at 2 hours, or >10% retention at 4 hours. IMPRESSION: 1. Delayed gastric emptying. Reviewed, dictated and finalized at location A. D DONOR UNIT ASSISTANT
== END 2022-05-02 08:11 | disposition home or self-care (01) ==
PROVIDERS: PCP Family Medicine; Visit Provider Internal Medicine Gastroenterology
DX: R11.0 Nausea (principal); K30 Functional dyspepsia
CPT/HCPCS: 78264; A9541

== ENCOUNTER 2022-05-31 08:02 | Outpatient (CLI) | payer OTHER, SELFPAY ==
[2022-06-04 16:10] LABS: H pylori Ag Stool Not Detected (Not Detected)
== END 2022-05-31 08:03 | disposition home or self-care (01) ==
LOC: ANHLAB 08:03
PROVIDERS: Nurse Practitioner; PCP Family Medicine; Visit Provider Internal Medicine Gastroenterology
DX: A04.8 Other specified bacterial intestinal infections (principal)
CPT/HCPCS: 87338

== ENCOUNTER 2023-09-18 16:05 | Outpatient (CLI) | payer OTHER, MEDICAID, SELFPAY ==
[2023-09-18 16:49] LABS: Basophils Absolute Auto 0.1 K/mm3 (0.0-0.1); Basophils Percent Auto 0.5 % (0.2-1.2); Eosinophils Absolute Auto 0.1 K/mm3 (0-0.3); Eosinophils Percent Auto 1.2 % (0-4.4); Hematocrit 41.7 % (37.0-47.0); Hemoglobin 13.9 g/dL (12.0-15.0); Immature Granulocyte Absolute 0.03 K/mm3 (0.00-0.031); Immature Granulocyte Percent A 0.3 % (0-0.5); Lymphocytes Absolute Auto 3.09 K/mm3 (0.9-3.2); Lymphocytes Percent Auto 30.4 % (18.3-44.2); Mean Corpuscular HGB Conc 33.3 g/dl (32-36); Mean Corpuscular Hemoglobin 31.4 pg (26-34); Mean Corpuscular Volume 94.1 fl (80-100); Monocytes Absolute Auto 0.8 K/mm3 (0.1-0.6); Monocytes Percent Auto 7.6 % (2.6-8.5); Neutrophils Absolute Auto 6.1 K/mm3 (1.3-6.7); Platelet Count Result 228 k/mm3 (150-375); Red Blood Count 4.43 M/mm3 (4.2-5.4); Red Cell Distribution Width 12.4 % (11.5-14.5); White Blood Count 10.2 K/mm3 (4.5-10.0)
[2023-09-18 17:00] LABS: Albumin Level 4.5 g/dL (3.5-5.1); Anion Gap 10 mmol/L (4-12); Blood Urea Nitrogen 8 mg/dL (7-17); Calcium 8.7 mg/dL (8.4-10.2); Carbon Dioxide 24 mmol/L (22-30); Chloride 104 mmol/L (98-107); Estimated Glomerular Filt Rate > 60; Glucose 80 mg/dL (65-110); Phosphorus 3.6 mg/dL (2.5-4.5); Potassium 3.8 mmol/L (3.4-5.0); Sodium 138 mmol/L (137-145)
[2023-09-18 17:02] LABS: Alanine Aminotransferase 16 U/L (6-35); Albumin Level 4.5 g/dL (3.5-5.1); Alkaline Phosphatase 64 U/L (38-126); Anion Gap 9 mmol/L (4-12); Aspartate Amino Transferase 31 U/L (14-36); Bilirubin,Total 0.5 mg/dL (0.2-1.3); Blood Urea Nitrogen 8 mg/dL (7-17); Calcium 8.7 mg/dL (8.4-10.2); Carbon Dioxide 25 mmol/L (22-30); Chloride 104 mmol/L (98-107); Cholesterol 165 mg/dL (0-200); Estimated Glomerular Filt Rate > 60; Glucose 78 mg/dL (65-110); HDL Direct 35 mg/dL; Potassium 3.7 mmol/L (3.4-5.0); Sodium 138 mmol/L (137-145); Triglycerides 186 mg/dL (<150)
[2023-09-18 17:06] LABS: Appearance Urine Clear (Clear); Bacteria Urine None Seen /hpf; Bilirubin Urine Negative (Negative); Blood Urine Trace (Negative); Color Urine Yellow (Yellow); Glucose Urine UA Negative (Negative); Ketones Urine Negative (Negative); Leukocyte Esterase Ur Trace LEU/UL (Negative); Nitrate Urine Negative (Negative); Non Pathogenic Casts 0-2; Protein Urine Negative (Negative); RBC Urine 0-2 /hpf (0-2); Specific Grav Ur 1.009 (1.001-1.035); Squamous Epithelial Cell Urine None Seen /hpf (Few); Urobilinogen Urine 0.2 mg/dL (<2.0); WBC Urine 0-5 /hpf (0-3); pH Urine 6.5 (5.0-9.0)
[2023-09-18 17:10] LABS: Add Urine Microscopic? YES
[2023-09-18 17:12] LABS: LDL Cholesterol Direct 106 mg/dL
[2023-09-18 18:10] LABS: Free T4 Free Thyroxine 1.01 ng/mL (0.78-2.19)
[2023-09-18 19:01] LABS: Vitamin D 25 Hydroxy 53.8 ng/mL
== END 2023-09-18 16:06 | disposition home or self-care (01) ==
LOC: ANHLAB 16:15
PROVIDERS: PCP Internal Medicine; Visit Provider Nurse Practitioner Adult Health
DX: R73.01 Impaired fasting glucose (principal); Z00.01 Encounter for general adult medical examination with abnormal findings; R53.83 Other fatigue; E55.9 Vitamin D deficiency, unspecified; R31.9 Hematuria, unspecified; M25.50 Pain in unspecified joint; G56.03 Carpal tunnel syndrome, bilateral upper limbs; R55 Syncope and collapse; R00.1 Bradycardia, unspecified; N30.00 Acute cystitis without hematuria; M43.26 Fusion of spine, lumbar region; M43.22 Fusion of spine, cervical region; K59.01 Slow transit constipation; Z86.010 Personal history of colon polyps
CPT/HCPCS: 36415; 80053; 80061; 80069; 81001; 82306; 84439; 84443; 85025

== ENCOUNTER 2024-01-13 16:18 | Emergency (ER) | payer OTHER, MEDICAID, SELFPAY ==
--- NOTE | ~2024-01-13 | XR_ITS ---
EXAMINATION: XR wrist RT min 3V DATE: 01/13/2024 16:39 INDICATION: Right upper extremity injury with swelling. TECHNIQUE: 4 views of right wrist were obtained. COMPARISON: None. FINDINGS: Alignment is normal. No fracture. There is mild osteoarthritis of first carpometacarpal kang nt and second and third metacarpophalangeal joints. IMPRESSION: 1. Mild polyarticular osteoarthritis. Reviewed, dictated and finalized at location A. MACHINE OPERATOR
--- NOTE | ~2024-01-13 | XR_ITS ---
EXAMINATION: XR forearm RT 2V DATE: 01/13/2024 16:39 INDICATION: Right forearm injury and swelling. TECHNIQUE: 2 views of right forearm were obtained. COMPARISON: None. FINDINGS: Alignment is normal. No fracture. There is mild osteoarthritis of first carpometacarpal kang nt. No elbow joint effusion. IMPRESSION: 1. No fracture. Reviewed, dictated and finalized at location A. R SWEEPER IMPRESSION: 1. No fracture.
[2024-01-13 16:22] VITALS: BP 137/58; PULSE 75; RESP 16; TEMP 36.5; O2SAT 100
--- NOTE | 2024-01-13 16:35 | ED_ITS ---
HPI - Extremity Injury (Upper) General Chief Complaint: Extremity Injury, Upper Stated Complaint: right arm injury Time Seen by Provider: 01/13/24 16:32 Source: patient Mode of arrival: ambulatory Limitations: no limitations History of Present Illness HPI narrative: This is a 43-year-old female who presents to the ED for chief complaint of right upper extremity injury that occurred today at work. Patient reports tripping and falling landing onto the right wrist. Denies numbness, weakness or further sites of pain or injury Related Data Home Medications Medication Instructions Recorded Confirmed No Home Medications 04/07/23 04/07/23 Allergies Allergy/AdvReac Type Severity Reaction Status Date / Time No Known Allergies Allergy Verified 01/13/24 16:19 Review of Systems Review of Systems: All systems as dictated in [facility] Past Medical History Medical History Dyspepsia Gastroparesis Helicobacter positive gastritis History of Helicobacter infection Nausea Patient denies significant medical history Right upper quadrant pain Screening mammogram for breast cancer Tobacco use Surgical History Surgical History H/O lumbosacral spine surgery History of tubal ligation Family History Family History (Updated 04/07/23 @ 14:59 by Brigitte Vázquez CMA) Grandparent Breast cancer Social History Social History (Updated 04/07/23 @ 14:59 by Brigitte Vázquez CMA) Smoking packs per day: 0.5 Smoking cigarettes per day: 10.0 Years smoked: 25 Smoking pack-years: 12.50 Smoking status: Current every day smoker Tobacco type: cigarettes Alcohol intake: never Substance use: current Substance use type: marijuana Do You Feel Safe in your Home?: Yes Lack of Transportation: No Lack of Food: Never True Current Housing: I Have Housing Concerned About Future Housing: No Difficulty Paying Gas/Electric Bills: No Difficulty Paying for Meds: No Currently Unemployed: No Education: High School Diploma/GED Difficulty w/ Childcare or Family Care: No Living arrangements: with family Gender identity (if verbalized by the patient): Female Exam Narrative: GENERAL: Well-appearing, well-nourished, and in no acute distress. HEAD: Normocephalic, atraumatic. EYES: PERRLA and EOMI. ENT: Nares clear, no rhinorrhea or epistaxis. Mucous membranes moist. Oropharynx without tonsillar hypertrophy exudate or other lesions. NECK: Supple. No adenopathy or masses. CHEST: No respiratory distress. Clear to auscultation. No wheezes rales or r honchi HEART: Regular rate and rhythm. No murmur heard. Normal peripheral pulses. ABDOMEN: Soft, nontender, nondistended, normal active bowel sounds. MSK: Right upper extremity: Anatomical snuffbox tenderness present. No gross deformities. No bruising. Neurovascularly intact distally. Left upper extremity: Benign SKIN: Warm, dry, no rash. NEURO: Alert and oriented x4. No focal deficits. PSYCH: Normal mood and affect. Course Vital Signs Vital signs: Vital Signs Temperature 97.7 F 01/13/24 16:22 Pulse Rate 75 01/13/24 16:22 Respiratory Rate 16 01/13/24 16:22 Blood Pressure 137/58 L 01/13/24 16:22 Pulse Oximetry 100 01/13/24 16:22 Oxygen Delivery Room Air 01/13/24 16:22 Temperature 97.7 F 01/13/24 16:22 Pulse Rate 75 01/13/24 16:22 Respiratory Rate 16 01/13/24 16:22 Blood Pressure 137/58 L 01/13/24 16:22 Pulse Oximetry 100 01/13/24 16:22 Oxygen Delivery Room Air 01/13/24 16:22 MDM - Extremity Injury (Upper) MDM Narrative Medical decision making narrative: This is a 43-year-old female who presents to the ED for chief complaint of right upper extremity injury at work today. Vitals are normal. Exam is remarkable for the above. Neurovascularly intact distally. Right upper extremity x-rays: No acute osseous findings. However there is anatomical snuffbox tenderness on exam. Will be placed in thumb spica splint and given hand referral. Patient will be discharged in stable condition. Supportive measures discussed and return precautions given. Patient is understanding and agreeable with plan for discharge with PCP/plastic surgery follow-up. Discharge Plan Discharge Clinical Impression: Injury of right forearm and wrist Patient Disposition: Home, Self-Care Condition: Stable Instructions: Antibiotic Form, Splint Care (ED) Additional Instructions: Your exam and imaging today are reassuring overall. There is tenderness at the wrist and this will need to be splinted until otherwise directed by hand surgeon. If you have any new or worsening symptoms please return to the ER for further evaluation. Prescriptions: No Action No Home Medications Follow-up/Referrals: Shawn Cochran MD [Physician] - Green,Mj Quezada MD [Primary Care Provider] - Stand Alone Forms: Work/School Release IP Time of Disposition: 17:04
== END 2024-01-13 17:28 | disposition home or self-care (01) ==
PROVIDERS: Emergency Provider Physician Assistant; PCP Internal Medicine
DX: S69.91XA Unspecified injury of right wrist, hand and finger(s), initial encounter (principal); S59.911A Unspecified injury of right forearm, initial encounter; K31.84 Gastroparesis; F17.210 Nicotine dependence, cigarettes, uncomplicated; M18.9 Osteoarthritis of first carpometacarpal joint, unspecified; M19.041 Primary osteoarthritis, right hand; W01.0XXA Fall on same level from slipping, tripping and stumbling without subsequent striking against object, initial encounter
CPT/HCPCS: 29125; 73090; 73110; 99283

== ENCOUNTER 2024-01-21 08:41 | Outpatient (CLI) | payer OTHER, SELFPAY ==
--- NOTE | ~2024-01-21 | XR_ITS ---
XR elbow RT 2V Ordering provider: Marylu Mello PA-C History: . ELBOW PAIN AFTER FALL 01/12 . Comparison: None. FINDINGS: BONES: No acute fracture or dislocation. JOINT SPACES: Normal. SOFT TISSUES: Unremarkable. No definite joint effusion. IMPRESSION: No acute osseous abnormality of the right elbow. Reviewed, dictated and finalized at location A. HEALTH CARE PROVIDER
--- NOTE | ~2024-01-21 | XR_ITS ---
XR wrist LT min 3V Ordering provider: Marylu Mello PA-C History: . LEFT WRIST PAIN AFTER FALL 01/12 . Comparison: None. FINDINGS: BONES: No acute fracture or dislocation. No definite scaphoid fracture. JOINT SPACES: Well maintained. SOFT TISSUES: Normal. IMPRESSION: No acute osseous abnormality left wrist. Reviewed, dictated and finalized at location A. LE APPLICATION DEVELOPMENT LEAD
--- NOTE | ~2024-01-21 | CT_ITS ---
EXAMINATION: CT wrist RT wo con DATE: 01/21/2024 09:37 INDICATION: Unspecified injury of right forearm, initial encounter. TECHNIQUE: Computed tomography (CT) of the right wrist was performed without intravenous contrast. Au tomated exposure control and iterative reconstruction technique were employed. The dose-length produc t was 371.43 mGy-cm. COMPARISON: Right wrist radiographs 01/13/2024 FINDINGS: Bone alignment is normal. No fracture. There is mild osteoarthritis of triscaphe joint and severe osteoarthritis of first carpometacarpal joint. There is mild osteoarthritis of first-third met acarpophalangeal joints. IMPRESSION: 1. Polyarticular osteoarthritis. Reviewed, dictated and finalized at location A. ENTRATOR OPERATOR
== END 2024-01-21 08:42 | disposition home or self-care (01) ==
PROVIDERS: PCP Internal Medicine; Visit Provider Physician Assistant Surgical
DX: M19.031 Primary osteoarthritis, right wrist (principal); S59.911A Unspecified injury of right forearm, initial encounter; S69.91XA Unspecified injury of right wrist, hand and finger(s), initial encounter; M25.521 Pain in right elbow; W19.XXXA Unspecified fall, initial encounter
CPT/HCPCS: 73070; 73110; 73200

== ENCOUNTER 2024-08-12 22:50 | Emergency (ER) | payer OTHER, SELFPAY ==
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
--- NOTE | ~2024-08-12 | CT_ITS ---
Noncontrast CT scan of the cervical spine Technique: Multiple contiguous axial [address] images of the cervical spine were obtained and rec onstructed in 2D sagittal and coronal planes on the acquisition scanner. Dose reduction technique was used on this scan by utilizing automated exposure control, adjustment of the mA and/or kV according to patient size. The dose-length product (DLP) was 459.56 mGy-cm. Clinical History: Pain Findings: No fracture seen. There is 2 mm retrolisthesis of C3 over C4.. There is anterior and interb jack fusion from C4 to C5. There is moderate to advanced degenerative disc narrowing at C3-C4. There i s mild facet arthropathy at C3-C4. There is prominent left facet arthropathy C6-C7. No prevertebral s oft tissue swelling. There is mild paraseptal emphysema in the upper lobes. Impression: No acute fracture. 2 mm retrolisthesis of C3 over C4. Status post C4-C5 fusion. Degenerative spondylosis at C3-C4, as above. Reviewed, dictated and finalized at [facility]. Impression: No acute fracture. 2 mm retrolisthesis of C3 over C4. Status post C4-C5 fusion. Degenerative spondylosis at C3-C4, as above.
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
--- NOTE | ~2024-08-12 | XR_ITS ---
Right Shoulder Technique: AP and axillary views were obtained. Clinical History: Pain Findings: No fracture or dislocation is seen. Osseous alignment is anatomic. The glenohumeral and acr omioclavicular joint spaces are preserved. Soft tissues are unremarkable. Impression: Unremarkable right shoulder radiographs. Reviewed, dictated and finalized at [facility]. Impression: Unremarkable right shoulder radiographs.
--- OUTSIDE RECORDS SUMMARY | 2024-08-12 22:52 | XMS_ITS | Data Portability ---
Author Organization [facility] Address [address] [place] [address] Care Team Providers Care Practice Manager Name Role Phone YAZMIN MOODY Child Care Attendant [employer] [phone] Assessment No assessment recorded. Plan of Treatment Reminders Order Date Submit Date Provider Last Modified By Organization Details Last Modified Time Details Appointments None recorded . Lab pap, IG + reflex HPV 2021 022 GURDON Carlito, [address], [address], [place], [address], 10:36:36 lh + FSH, serum 2021 022 [facility], [address] [place] [address], [address], [place], [address], 08:16:29 CBC w/ auto diff 2021 022 [facility], [address] [place] [address], [address], [place], [address], 08:16:28 prolacti n, serum 2021 022 [facility], [address] [place] [address], [address], [place], [address], 08:16:27 CMP, serum or plasma 2021 022 GURDON Carlito, [address], [address], [place], [address], 2 08:16:26 PT/PTT, plasma 2021 [facility], [address], [address], [place], [address], 2 08:16:28 TSH, ultra-se nsitive, serum 2021 [facility], [address], [address], [place], [address], 2 08:16:27 urinalys is, dipstick 2021 [email or web address] In-Office Order, Internal Use Only DO Not Attach Compendium DO Not Attach Compendium, Do Not Delete/merge, [id number] 10:35:18 chlamydi a trachoma tis + neisseri a gonorrho eae + trichomo mari vaginali s DNA panel, ESTELITA+prob e, unspecif ied specimen 2021 022 [facility], [address], [address], [place], [address], 2 06:07:42 HIV 1+2 AB + HIV 1 p24 Ag, qualitat radha immunoas say, serum 2016 017 [facility], [address], [address], [place], [address], 7 16:12:50 hepatiti s C Ab, signal-t o-cutoff , serum or plasma 2016 017 [facility], [address], [address], [place], [address], 7 16:12:50 CMP, serum or plasma 2016 017 [facility], [address], [address], [place], [address], 7 16:12:51 lipid panel, serum 2016 017 LUCIA [facility], [address], [address], [place], [address], 7 16:12:50 Referral urogynec ologist referral 2021 LUCIA [employer], [address] [place], [address], 3 05:01:43 general surgeon referral - Please call patient to schedule appt. Thank you 2016 LUCIA Valencia MD, [address] [facility], [address], [place], [address], 7 12:24:10 neurosur gabino referral - Gita spoke to your PA. Please call patient to schedule 2016 017 LUCIA Boland MD, 3 [facility], [address], [place], [address], 7 11:28:20 Procedures None recorded . Surgeries None recorded . Imaging US, pelvis, transabd ominal + transvag inal 2021 [facility] ([facility]), [address] [place], [address], 3 14:51:17 MAMMO, screenin g, bilatera l 2021 022 [facility] ([facility]), [address] [place], [address], 3 14:51:17 MRI, lumbar spine, w/o contrast 2015 016 [facility] ([facility]), [address] [place], [address], 16:21:54 Medication Orders Bactrim DS 800 mg-160 mg tablet 2021 022 [email or web address] [id number], [address], [place], [place], [id number], 16:50:31 ketorola c 60 mg/2 mL intramus cular solution 2016 017 [email or web address] Not available 10:12:00 hydrocod one 5 mg-aceta minophen 325 mg tablet 2016 017 [email or web address] Not available 10:11:47 hydrocod one 5 mg-aceta minophen 325 mg tablet 2015 016 [email or web address] Not available 10:11:47 ketorola c 60 mg/2 mL intramus cular solution 2015 016 [email or web address] Not available 10:12:00 Patient TargetsNo targets recorded. Patient Instructions Encounter Date Encounter Id Patient Instructions Last Modified By Organization Details Last Modified Time 11/23/2015 [id number] Having fasting blood work completed today [email or web address] Not available 11/23/2015 11:01:42 12/29/2015 [id number] Patient has colonoscopy schedule for 01/12/16 eewig Not available 12/29/2015 12:41:16 02/08/2022 [id number] learning about breast cancer screening [email or web address] Not available 02/08/2022 10:35:18 JEANNIE Monzon Discussed with CHON Diaz Not available 02/08/2022 16:49:15 Reason for Referral Neurosurgery Referral for Di sorder of lumbar disc Gita spoke to your PA. Please call patient to schedule Referring Physician: Radha Romo, Family Medicine, Encounter Date: 03/06/2016 General Surgeon Referral for Subcutaneous nodule Please call patient to schedule appt. Thank you Referring Physician: Radha Romo Family Medicine, Encounter Date: 09/17/2016 Urogynecologist Referral for Prolapse of female genital organs Referring Physician: Yazmin Moody, Rn Testing, Encounter Date: 02/08/2022 Results Created Date Observation Date Name Description Value Unit Range Abnormal Flag Note LastModifiedBy Organization Detail LastModifiedTime 09/09/1909/10/2018 cultu re, urine urine culture, routine Final report abnormal Not Available [facility] ([facility]) [address] [facility], [place], [address], 09/10/2018 06:19:22 09/09/19 19 09/10/2018 cultu re, urine result 1 Commen t abnormal Beta hemol ytic Strep tococ cus, group B 10,00 0-25, 000 colon y formi ng units per mL Penic illin and ampic illin are drugs of choic e for treat ment of beta- hemol ytic strep tococ laure infec tions . Susce ptibi lity testi ng of penic illin s and other beta- lacta m agent s appro renzo by the FDA for treat ment of beta- hemol ytic strep tococ laure infec tions need not be perfo rmed angeles rajput se nonsu scept ible isola radha are extre gail rare in any beta- hemol ytic strep tococ cus and have not been repor tato for Strep tococ cus pyoge bibiana (grou p A). (CLSI ) Not Available [facility] ([facility]) [address] [facility], [place], [address], 09/10/2018 06:19:22 02/09/20 22 02/11/2022 IGP,A PTIMA HPV,A GE GDLN age gdln acog testing 30-65 Not Available [facility] ([facility]) [address] [facility], [place], [address], 02/20/2022 10:36:35 02/09/20 22 02/12/2022 IGP, APTIM A HPV, RFX 16/18 ,45 HPV aptima Negati ve negati ve This nucle ic acid ampli ficat ion test detec ts fourt een high- risk HPV types (16,1 8,31, 33,35 ,39,4 5,51, 52,56 ,58,5 9,66, 68) witho ut diffe renti ation . Not Available [facility] ([facility]) [address] [facility], [place], [address], 02/20/2022 10:36:36 02/09/20 22 02/20/2022 IGP, APTIM A HPV, RFX 16/18 ,45 diagnosis: Patel dozier NEGAT RADHA FOR INTRA EPITH ELIAL LESIO N OR PATRIZIA VINCENT . THIS SPECI MEN WAS RESCR EENED PART OF OUR QUALI TY CONTR OL PROGR AM. Not Available [facility] ([facility]) [address] [facility], [place], [address], 02/20/2022 10:36:36 02/09/20 22 02/20/2022 IGP, APTIM A HPV, RFX 16/18 ,45 specimen adequacy: Patel dozier Satis facto ry for evalu ation . Endoc ervic al and/o r squam ous metap lasti c cells (endo cervi larue compo nent) are prese nt. Areas of parti ally obscu ring blood are prese nt. Not Available [facility] ([facility]) [address] [facility], [place], [address], 02/20/2022 10:36:36 02/09/20 22 02/20/2022 IGP, APTIM A HPV, RFX 16/18 ,45 clinician provided ICD10: Patel dozier Z01.4 19 Not Available [facility] ([facility]) [address] [place], [address], 02/20/2022 10:36:36 02/09/20 22 02/20/2022 IGP, APTIM A HPV, RFX 16/18 ,45 performed by: Patel Lloyd in [place], Cytot echno logis t (ASCP ) Not Available [facility] ([facility]) [address] [place], [address], 02/20/2022 10:36:36 02/09/20 22 02/20/2022 IGP, APTIM A HPV, RFX 16/18 ,45 QC reviewed by: Patel iLveo n, Super visor y Cytot echno logis t (ASCP ) Not Available [facility] ([facility]) [address] [place], [address], 02/20/2022 10:36:36 02/09/20 22 02/20/2022 IGP, APTIM A HPV, RFX 16/18 ,45 . . Not Available [facility] ([facility]) [address] [facility], [place], [address], 02/20/2022 10:36:36 02/09/20 22 02/20/2022 IGP, APTIM A HPV, RFX 16/18 ,45 note: Patel dozier The Pap smear is a scree diego test desig bob to aid in the detec tion of olesya ligna nt and malig nant condi tions of the uteri ne cervi x. It is not a diagn ostic proce dure and shoul d not be used as the sole means of detec ting cervi laure cance r. Both false -posi tive and false -nega tive repor ts do occur . Not Available [facility] ([facility]) [address] [place], [address], 02/20/2022 10:36:36 02/09/20 22 02/20/2022 IGP, APTIM A HPV, RFX 16/18 ,45 test methodology: Patel dozier This liqui d based ThinP rep(R ) pap test was scree bob with the use of an image guide kev david. Not Available [facility] ([facility]) [address] [place], [address], 02/20/2022 10:36:36 02/09/20 22 02/20/2022 IGP, APTIM A HPV, RFX 16/18 ,45 HPV genotype reflex Commen t Crite laura not met, HPV Genot ype not perfo rmed. Not Available [facility] ([facility]) [address] [place], [address], 02/20/2022 10:36:36 02/09/20 22 02/11/2022 CT, NG, TRICH VAG BY ESTELITA chlamydia by ESTELITA Negati ve negati ve Not Available [facility] ([facility]) [address] [place], [address], 02/11/2022 06:07:41 02/09/20 22 02/11/2022 CT, NG, TRICH VAG BY ESTELITA gonococcus by ESTELITA Negati ve negati ve Not Available [facility] ([facility]) [address] [place], [address], 02/11/2022 06:07:41 02/09/20 22 02/11/2022 CT, NG, TRICH VAG BY ESTELITA trich vag by ESTELITA Negati ve negati ve Not Available [facility] ([facility]) [address] [place], [address], 02/11/2022 06:07:41 02/09/20 22 02/09/2022 FSH AND LH LH 7.5 mIU/m L Adult Femal e: Folli cular phase 2.4 - 12.6 Ovula tion phase 14.0 - 95.6 Lutea l phase 1.0 - 11.4 Postm enopa usal 7.7 - 58.5 Not Available [facility] ([facility]) [address] [place], [address], 02/09/2022 08:16:29 02/09/20 22 02/09/2022 FSH AND LH FSH 10.4 mIU/m L Adult Femal e: Folli cular phase 3.5 - 12.5 Ovula tion phase 4.7 - 21.5 Lutea l phase 1.7 - 7.7 Postm enopa usal 25.8 - 134.8 Not Available [facility] ([facility]) [address] [place], [address], 02/09/2022 08:16:29 02/09/20 22 02/09/2022 PT AND PTT INR 1.0 0.9-1. 2 Refer ence inter antonino is for non-a ntico agula tato patie nts. Sugge sted INR thera peuti c range for Vitam in K antag onist thera py: Stand cherry Dose (mode rate inten sity thera peuti c range ): 2.0 - 3.0 Highe r inten sity thera peuti c range 2.5 - 3.5 Not Available [facility] ([facility]) [address] [facility], [place], [address], 02/09/2022 08:16:28 02/09/20 22 02/09/2022 PT AND PTT prothrombin time 10.5 sec 9.1-12 .0 Not Available [facility] ([facility]) [address] [place], [address], 02/09/2022 08:16:28 02/09/20 22 02/09/2022 PT AND PTT APTT 28 sec 24-33 This test has not been valid ated for monit oring unfra ction ated hepar in thera py. aPTT- based thera peuti c range s for unfra ction ated hepar in thera py have not been estab lishe d. For gener al guide lines on Hepar in monit oring , refer to the [facility] Gabriel morrissey. Not Available [facility] ([facility]) [address] [place], [address], 02/09/2022 08:16:28 02/09/20 22 02/09/2022 CBC WITH DIFFE SORAYA AL/PL ATELE T WBC 10.6 x10e3 /uL 3.4-10 .8 Not Available [facility] ([facility]) [address] [place], [address], 02/09/2022 08:16:28 02/09/20 22 02/09/2022 CBC WITH DIFFE RENTI AL/PL ATELE T RBC 4.73 x10e6 /uL 3.77-5 .28 Not Available [facility] ([facility]) [address] [place], [address], 02/09/2022 08:16:28 02/09/20 22 02/09/2022 CBC WITH DIFFE RENTI AL/PL ATELE T hemoglobin 14.5 g/dL 11.1-1 5.9 Not Available [facility] ([facility]) [address] [place], [address], 02/09/2022 08:16:28 02/09/20 22 02/09/2022 CBC WITH DIFFE RENTI AL/PL ATELE T hematocrit 43.1 % 34.0-4 6.6 Not Available [facility] ([facility]) [address] [place], [address], 02/09/2022 08:16:28 02/09/20 22 02/09/2022 CBC WITH DIFFE RENTI AL/PL ATELE T MCV 91 fL 79-97 Not Available [facility] ([facility]) [address] [place], [address], 02/09/2022 08:16:28 02/09/20 22 02/09/2022 CBC WITH DIFFE RENTI AL/PL ATELE T MCH 30.7 pg 26.6-3 3.0 Not Available [facility] ([facility]) [address] [place], [address], 02/09/2022 08:16:28 02/09/20 22 02/09/2022 CBC WITH DIFFE RENTI AL/PL ATELE T MCHC 33.6 g/dL 31.5-3 5.7 Not Available [facility] ([facility]) [address] [facility], [place], [address], 02/09/2022 08:16:28 02/09/20 22 02/09/2022 CBC WITH DIFFE RENTI AL/PL ATELE T RDW 12.5 % 11.7-1 5.4 Not Available [facility] ([facility]) [address] [facility], [place], [address], 02/09/2022 08:16:28 02/09/20 22 02/09/2022 CBC WITH DIFFE RENTI AL/PL ATELE T platelets 286 x10e3 /uL 150-45 0 Not Available [facility] ([facility]) [address] [facility], [place], [address], 02/09/2022 08:16:28 02/09/20 22 02/09/2022 CBC WITH DIFFE RENTI AL/PL ATELE T neutrophils 66 % notest ab. Not Available [facility] ([facility]) [address] [facility], [place], [address], 02/09/2022 08:16:28 02/09/20 22 02/09/2022 CBC WITH DIFFE RENTI AL/PL ATELE T lymphs 27 % notest ab. Not Available [facility] ([facility]) [address] [facility], [place], [address], 02/09/2022 08:16:28 02/09/20 22 02/09/2022 CBC WITH DIFFE RENTI AL/PL ATELE T monocytes 6 % notest ab. Not Available [facility] ([facility]) [address] [place], [address], 02/09/2022 08:16:28 02/09/20 22 02/09/2022 CBC WITH DIFFE RENTI AL/PL ATELE T eos 1 % notest ab. Not Available [facility] ([facility]) [address] [facility], [place], [address], 02/09/2022 08:16:28 02/09/20 22 02/09/2022 CBC WITH DIFFE RENTI AL/PL ATELE T basos 0 % notest ab. Not Available [facility] ([facility]) [address] [facility], [place], [address], 02/09/2022 08:16:28 02/09/20 22 02/09/2022 CBC WITH DIFFE RENTI AL/PL ATELE T neutrophils (absolute) 6.9 x10e3 /uL 1.4-7. 0 Not Available [facility] ([facility]) [address] [facility], [place], [address], 02/09/2022 08:16:28 02/09/20 22 02/09/2022 CBC WITH DIFFE RENTI AL/PL ATELE T lymphs (absolute) 2.9 x10e3 /uL 0.7-3. 1 Not Available [facility] ([facility]) [address] [facility], [place], [address], 02/09/2022 08:16:28 02/09/20 22 02/09/2022 CBC WITH DIFFE RENTI AL/PL ATELE T monocytes(ab solute) 0.7 x10e3 /uL 0.1-0. 9 Not Available [facility] ([facility]) [address] [place], [address], 02/09/2022 08:16:28 02/09/20 22 02/09/2022 CBC WITH DIFFE RENTI AL/PL ATELE T eos (absolute) 0.1 x10e3 /uL 0.0-0. 4 Not Available [facility] ([facility]) [address] [place], [address], 02/09/2022 08:16:28 02/09/20 22 02/09/2022 CBC WITH DIFFE RENTI AL/PL ATELE T baso (absolute) 0.0 x10e3 /uL 0.0-0. 2 Not Available [facility] ([facility]) [address] [facility] [place], [address], 02/09/2022 08:16:28 02/09/20 22 02/09/2022 CBC WITH DIFFE RENTI AL/PL ATELE T immature granulocytes 0 % notest ab. Not Available [facility] ([facility]) [address] [facility], [place], [address], 02/09/2022 08:16:28 02/09/20 22 02/09/2022 CBC WITH DIFFE RENTI AL/PL ATELE T immature grans (abs) 0.0 x10e3 /uL 0.0-0. 1 Not Available [facility] ([facility]) [address] [facility], [place], [address], 02/09/2022 08:16:28 02/09/20 22 02/09/2022 PROLA CTIN prolactin 9.5 NG/mL 4.8-23 .3 Not Available [facility] ([facility]) [address] [facility] [place], [address], 02/09/2022 08:16:27 02/09/20 22 02/09/2022 TSH RFX ON ABNOR MAL TO FREE T4 TSH 2.110 uIU/m L 0.450- 4.500 Not Available [facility] ([facility]) [address] [facility] [place], [address], 02/09/2022 08:16:27 02/09/20 22 02/09/2022 COMP. METAB OLIC PANEL (14) glucose 97 mg/dL 70-99 Not Available [facility] ([facility]) [address] [facility] [place], [address], 02/09/2022 08:16:26 02/09/20 22 02/09/2022 COMP. METAB OLIC PANEL (14) BUN 8 mg/dL 6-24 Not Available [facility] ([facility]) [address] [place], [address], 02/09/2022 08:16:26 02/09/20 22 02/09/2022 COMP. METAB OLIC PANEL (14) creatinine 0.76 mg/dL 0.57-1 .00 Not Available [facility] ([facility]) [address] [place], [address], 02/09/2022 08:16:26 02/09/20 22 02/09/2022 COMP. METAB OLIC PANEL (14) eGFR 102 mL/mi n/1.7 3 >59 Not Available [facility] ([facility]) [address] [facility] [place], [address], 02/09/2022 08:16:26 02/09/20 22 02/09/2022 COMP. METAB OLIC PANEL (14) BUN/creatini ne ratio 11 9-23 Not Available [facility] ([facility]) [address] [facility], [place], [address], 02/09/2022 08:16:26 02/09/20 22 02/09/2022 COMP. METAB OLIC PANEL (14) sodium 141 mmol/ L 134-14 4 Not Available [facility] ([facility]) [address] [facility] [place], [address], 02/09/2022 08:16:26 02/09/20 22 02/09/2022 COMP. METAB OLIC PANEL (14) potassium 4.8 mmol/ L 3.5-5. 2 Not Available [facility] ([facility]) [address] [facility] [place], [address], 02/09/2022 08:16:26 02/09/20 22 02/09/2022 COMP. METAB OLIC PANEL (14) chloride 103 mmol/ L 96-106 Not Available [facility] ([facility]) [address] [facility] [place], [address], 02/09/2022 08:16:26 02/09/20 22 02/09/2022 COMP. METAB OLIC PANEL (14) carbon dioxide, total 25 mmol/ L 20- Not Available [facility] ([facility]) [address] [facility], [place], [address], 02/09/2022 08:16:26 02/09/20 22 02/09/2022 COMP. METAB OLIC PANEL (14) calcium 9.6 mg/dL 8.7-10 .2 Not Available [facility] ([facility]) [address] [facility] [place], [address], 02/09/2022 08:16:26 02/09/20 22 02/09/2022 COMP. METAB OLIC PANEL (14) protein, total 7.2 g/dL 6.0-8. 5 Not Available [facility] ([facility]) [address] [facility] [place], [address], 02/09/2022 08:16:26 02/09/20 22 02/09/2022 COMP. METAB OLIC PANEL (14) albumin 4.7 g/dL 3.8-4. 8 Not Available [facility] ([facility]) [address] [facility] [place], [address], 02/09/2022 08:16:26 02/09/20 22 02/09/2022 COMP. METAB OLIC PANEL (14) globulin, total 2.5 g/dL 1.5-4. 5 Not Available [facility] ([facility]) [address] [facility] [place], [address], 02/09/2022 08:16:26 02/09/20 22 02/09/2022 COMP. METAB OLIC PANEL (14) A/G ratio 1.9 1.2-2. 2 Not Available [facility] ([facility]) [address] [facility] [place], [address], 02/09/2022 08:16:26 02/09/20 22 02/09/2022 COMP. METAB OLIC PANEL (14) bilirubin, total 0.5 mg/dL 0.0-1. 2 Not Available [facility] ([facility]) [address] [place], [address], 02/09/2022 08:16:26 02/09/20 22 02/09/2022 COMP. METAB OLIC PANEL (14) alkaline phosphatase 89 IU/L 44-121 Not Available [facility]) [address] [facility], [place], [address], 02/09/2022 08:16:26 02/09/20 22 02/09/2022 COMP. METAB OLIC PANEL (14) AST (SGOT) 28 IU/L 0-40 Not Available [facility] ([facility]) [address] [facility], [place], [address], 02/09/2022 08:16:26 02/09/20 22 02/09/2022 COMP. METAB OLIC PANEL (14) ALT (SGPT) 26 IU/L 0-32 Not Available [facility] ([facility]) [address] [facility], [place], [address], 02/09/2022 08:16:26 02/09/20 22 02/08/2022 urina lysis , dipst ick Leukocytes Negati ve Not Available In-Office Order Internal Use Only DO Not Attach Compendium DO Not Attach Compendium, Do Not Delete/merge, [id number] 02/08/2022 10:21:40 02/09/20 22 02/08/2022 urina lysis , dipst ick Nitrite negati ve Not Available In-Office Order Internal Use Only DO Not Attach Compendium DO Not Attach Compendium, Do Not Delete/merge, [id number] 02/08/2022 10:21:40 02/09/20 22 02/08/2022 urina lysis , dipst ick Urobilinogen .2 Not Available In-Of fice Order Internal Use Only DO Not Attach Compendium DO Not Attach Compendium, Do Not Delete/merge, [facility] 02/08/2022 10:21:40 02/09/20 22 02/08/2022 urina lysis , dipst ick Protein Negati ve Not Available In-Office Order Internal Use Only DO Not Attach Compendium DO Not Attach Compendium, Do Not Delete/merge, [facility] 02/08/2022 10:21:40 02/09/20 22 02/08/2022 urina lysis , dipst ick pH 6.0 Not Available In-Office Order Internal Use Only DO Not Attach Compendium DO Not Attach Compendium, Do Not Delete/merge, [facility] 02/08/2022 10:21:40 02/09/20 22 02/08/2022 urina lysis , dipst ick Blood Modera te Not Available In-Office Order Internal Use Only DO Not Attach Compendium DO Not Attach Compendium, Do Not Delete/merge, [facility] 02/08/2022 10:21:40 02/09/20 22 02/08/2022 urina lysis , dipst ick Specific [place] 1.030 Not Available In-Off ice Order Internal Use Only DO Not Attach Compendium DO Not Attach Compendium, Do Not Delete/merge, [facility] 02/08/2022 10:21:40 02/09/20 22 02/08/2022 urina lysis , dipst ick Ketone Negati ve Not Available In-Office Order Internal Use Only DO Not Attach Compendium DO Not Attach Compendium, Do Not Delete/merge, [facility] 02/08/2022 10:21:40 02/09/20 22 02/08/2022 urina lysis , dipst ick Bilirubin Negati ve Not Available In-Office Order Internal Use Only DO Not Attach Compendium DO Not Attach Compendium, Do Not Delete/merge, [facility] 02/08/2022 10:21:40 02/09/20 22 02/08/2022 urina lysis , dipst ick Glucose Negati ve Not Available In-Office Order Internal Use Only DO Not Attach Compendium DO Not Attach Compendium, Do Not Delete/merge, [facility] 02/08/2022 10:21:40 12/20/19 16 12/19/2015 MRI, lumba r spine , w/o contr ast No observ ation record ed. [email or web address] [facility] [address] [place], [address], 12/27/2015 16:14:18 02/26/19 17 02/26/2016 CT, sacru m + coccy x, w/o contr ast No observ ation record ed. [email or web address] [facility] (Imaging) [address] [place], [address], 02/29/2016 14:52:44 03/22/19 17 03/19/2016 CT, lumba r spine , w/o contr ast No observ ation record ed. [email or web address] Not Available 02/25 16:43:58 12/03/19 18 12/02/2017 CT, abdom en + pelvi s, w/o contr ast No observ ation record ed. [email or web address] [facility] (Im[facility]) [address] [place], [address], 12/02/2017 14:01:51 02/04/[address], abdom en + pelvi s, w/ contr ast No observ ation record ed. [email or web address] Not Available 2017 11:18:22 10/19/19 19 10/18/2018 CT, abdom en + pelvi s, w/o contr ast No observ ation record ed. [email or web address] [facility] ([facility] [address] [place], [address], 10/19/2018 12:40:12 Result Notes None recorded. Problems Name Problem SNOMED Code Status Onset Date Resolution Date Notes Provider Name and Address Organization Details Recorded Time Fibrocystic disease of breast 57509639 Active Radha Romo PA-C Attn: Accounting ,[address] [place], [address] , [facility] 6 10:59:09 Mammography abnormal 710056553 Active Radha Romo PA-C Attn: Accounting ,[address] [place], [address] , [place] [facility] 6 10:59:09 Tobacco dependence syndrome 02152558 Active Radha Romo PA-C Attn: Accounting ,[address] [facility], [place], [address] , [place] - [facility] 6 11:01:41 Irregular periods 78535905 Active Radha Romo PA-C Attn: Accounting ,[address] [facility], [place], [address] , [place] - [facility] 6 10:59:09 Chronic sciatica 984911412 Active Radha Romo PA-C Attn: Accounting ,[address] [facility], [place], [address] , [place] - [facility] 6 11:01:41 Segmental bullous emphysema 034177579 Active treated in Radha Romo PA-C Attn: Accounting ,[address] [facility], [place], [address] , [place] - [facility] 6 11:01:41 Pleurisy [id number] Active Radha Romo PA-C Attn: Accounting ,[address] [facility], [place], [address] , [place] [facility] 6 11:01:41 Disorder of lumbar disc 144844737 Active 2016 Radha Romo PA-C Attn: Accounting ,[address] [facility], [place], [address] , [place] [facility] 7 14:14:21 Subcutaneou s nodule 92216431 Active 2016 Radha Romo PA-C Attn: Accounting ,[address] [facility], [place], [address] , [place] [facility] 7 16:12:03 Body mass index 25-29 - overweight 244090785 Active 2016 Radha Romo PA-C Attn: Accounting ,[address] [facility], [place], [address] , [place] [facility] 07/25/201 7 16:12:03 Problem Notes None recorded. Procedures Surgical History Date Name Laterality Status Provider Name and Address Organization Details Recorded Time 02/09/20 22 Date of Last Pap Smear completed Shahida Garcia [facility] 02/08/2022 10:14:14 08/18/19 16 Date of Last Mammogram completed Shahida Garcia [facility] 02/08/2022 10:14:24 02/24/19 12 Tonsillectomy completed Tamy Johnson [facility] 02/21/2014 15:10:31 02/24/19 10 Orthopedic Surgery completed Tamy Johnson [facility] 02/21/2014 15:11:17 02/24/19 06 Tubal Ligation completed Tamy Johnson [facility] 02/21/2014 15:09:59 02/24/19 01 Laparoscopy completed Tamy Johnson [facility] 02/21/2014 15:10:15 Imaging Results None recorded. Procedure Notes None recorded. Medical Equipment None Reported. Allergies No known drug allergies Medications Name Sig Start Date Stop Date Status Note LastModified by Organization Details LastModified Time tetracyclin e 500 mg capsule TAKE 1 CAPSULE BY MOUTH EVERY 6 HOURS FOR 14 DAYS 02/08 completed Not Available Not Available Not Available cyclobenzap rine 10 mg tablet 02/08 completed Not Available Not Available Not Available amoxicillin 500 mg capsule 02/08 completed Not Available Not Available Not Available methocarbam ol 500 mg tablet 02/08 completed Not Available Not Available Not Available neomycin-po lymyxin-hyd rocort 3.5 mg/mL-10,00 0 unit/mL-1 % ear solution INSTILL 4 DROPS IN THE RIGHT EAR FOUR TIMES DAILY 02/08 completed Not Available Not Available Not Available ibuprofen 800 mg tablet 11/22 completed Not Available Not Available Not Available hydrocodone 5 mg-acetamin ophen 325 mg tablet Take 1 tablet every 4-6 hours by oral route. 02/08 completed Not Available Not Available Not Available ondansetron HCl 4 mg tablet 02/08 completed Not Available Not Available Not Available metronidazo le 500 mg tablet TAKE 1 TABLET BY MOUTH EVERY 8 HOURS FOR 14 DAYS 02/08 completed Not Available Not Available Not Available ciprofloxac in 500 mg tablet TAKE 1 TABLET BY MOUTH TWICE DAILY 02/08 completed Not Available Not Available Not Available sulfamethox azole 800 mg-trimetho prim 160 mg tablet TAKE 1 TABLET BY MOUTH EVERY 12 HOURS FOR 7 DAYS active Not Available Not Available No t Available tramadol 50 mg tablet TAKE 1 TABLET BY MOUTH EVERY 8 HOURS NEEDED 02/08 completed Not Available Not Available Not Available amoxicillin 500 mg tablet Take 1 tablet every 8 hours by oral route for 5 days. 02/08 completed Not Available Not Available Not Available ketorolac 10 mg tablet 02/08 completed Not Available Not Available Not Available Macrobid 100 mg capsule Take 1 capsule every 12 hours by oral route for 10 days. 02/08 completed Not Available Not Available Not Available Vitamin tablet Take 1 tablet every day by oral route as directed. 11/15 completed Not Available Not Available Not Available meloxicam 7.5 mg tablet 11/15 completed Not Available Not Available Not Available famotidine 20 mg tablet 09/19 completed Not Available Not Available Not Available cephalexin 500 mg capsule 02/08 completed Not Available Not Available Not Available promethazin e 25 mg tablet 02/08 completed Not Available Not Available Not Available omeprazole 20 mg capsule,del ayed release TAKE 1 CAPSULE BY MOUTH TWICE DAILY FOR 14 DAYS 02/08 completed Not Available Not Available Not Available levofloxaci n 500 mg tablet 02/08 completed Not Available Not Available Not Available methylpredn isolone 4 mg tablets in a dose pack TAKE PER PACKAGE DIRECTION S 02/08 completed Not Available Not Available Not Available ketorolac 60 mg/2 mL intramuscul ar solution Inject 2 mL every day by intramusc ular route. 02/08 completed Not Available Not Available Not Available norethindro ne (contracept radha) 0.35 mg tablet Take 1 tablet every day by oral route. 09/19 completed Not Available Not Available Not Available ondansetron 4 mg disintegrat ing tablet DISSOLVE 1 TABLET ON THE TONGUE EVERY 8 HOURS NEEDED FOR NAUSEA OR VOMITING 02/08 completed Not Available Not Available Not Available naproxen 500 mg tablet 02/08 completed Not Available Not Available Not Available amoxicillin 875 mg-potgonzalesu m clavulanate 125 mg tablet TAKE 1 TABLET BY MOUTH TWICE DAILY 02/08 completed Not Available Not Available Not Available peg 3350 240 gram-electr olytes 22.72 gram-6.72 g-5.84 g powdr for soln 02/08 completed Not Available Not Available Not Available calcium 600 mg (as carbonate)- vitamin D3 20 mcg (800 unit) tablet Take 1 tablet twice a day by oral route for 30 days. 11/15 completed Not Available Not Available Not Available Vitals Date Recorded Body height Body weight Body mass index (BMI) Heart rate Respiratory rate Body temperature Systolic blood pressure Diastolic blood pressure Provider Name and Address Organization Details Last Updated DateTime 7 162.56 cm 79106.1 5 g 27.9 kg/m2 80 /min 14 /min 97.4 [degF] 136 mm[Hg] 90 mm[Hg] Ilan Singletary [facility] 7 14:11:04 Date Recorded Body height Body mass index (BMI) Body weight Oxygen saturation Oxygen saturation in Arterial blood by Pulse oximetry Heart rate Body temperature Systolic blood pressure Diastolic blood pressure Provider Name and Address Organization Details Last Updated DateTime 7 162.56 cm 27 kg/m2 32804.8 g 98 % 98 % 58 /min 98.2 [degF] 132 mm[Hg] 88 mm[Hg] Kylah Tenorio MA [facility] 7 16:04:49 Date Recorded Body height Body weight Body mass index (BMI) Oxygen saturation Oxygen saturation in Arterial blood by Pulse oximetry Heart rate Body temperature Systolic blood pressure Diastolic blood pressure Provider Name and Address Organization Details Last Updated DateTime 6 162.56 cm 87741.1 3 g 28.6 kg/m2 100 % 100 % 78 /min 97.9 [degF] 142 mm[Hg] 96 mm[Hg] Kenya Vázquez MA PA - [facility] 6 12:08:44 Date Recorded Body height Body mass index (BMI) Body weight Systolic blood pressure Diastolic blood pressure Provider Name and Address Organization Details Last Updated DateTime 02/08/2022 162.56 cm 29 kg/m2 69432.75 g 122 mm[Hg] 76 mm[Hg] Shahida Garcia MA PA - [facility] 2 10:16:55 Social History Question Answer Notes LastModified by Organizat ion Details LastModified Time Tobacco Smoking Status Current Every Day Smoker Tamy Johnson [place] null, [place] - [facility] 02/21/2014 15:15:02 Do You Have An Advance Directive? No Information not available 02/21/2014 Is Blood Transfusion Acceptable In An Emergency? Yes Information not available 02/21/2014 What Is Your Level Of Caffeine Consumption? Heavy Information not available 02/21/2014 How Much Tobacco Do You Chew? None Information not available 02/21/2014 What Type Of Diet Are You Following? REGULAR Information not available 02/21/2014 Which Illicit Or Recreational Drugs Have You Used? Denies Information not available 08/07/2015 Education 10 Information no t available 02/21/2014 Live Alone Or With Others? With Others And 4 Children Information not available 09/20/2015 What Was The Date Of Your Most Recent Tobacco Screening? 02/08/2022 Information not available 02/08/2022 How Many Children Do You Have? 4 All Her 's Children Information not available 09/20/2015 Performs Monthly Self-breast Exam? No Information not available 02/21/2014 Do You Use Protection During Sex? Always Information not available 02/21/2014 What Is Your Relationship Status? Information not available 02/21/2014 Seat Belts Used Routinely Yes Information not available 02/21/2014 Are You Sexually Active? Yes Information not available 02/21/2014 Do You Have Smoke And Carbon Monoxide Detectors In Your Home? Yes Information not available 02/08/2022 At What Age Did You Start Smoking Tobacco? 23 Information not available 02/21/2014 Are You Passively Exposed To Smoke? Yes Information not available 02/08/2022 How Much Tobacco Do You Smoke? 0.5 PPD Information not available 02/21/2014 General Stress Level Medium Information not available 02/21/2014 Do You Use Sunscreen Routinely? No Information not available 02/21/2014 Has Tobacco Cessation Counseling Been Provided? Yes Information not available 02/08/2022 On What Date Was Tobacco Cessation Counseling Provided? 02/08/2022 Information not available 02/08/2022 How Many Years Have You Smoked Tobacco? 10 Information not available 02/21/2014 Sex: Unknown Functional Status Question Answer Note LastModified by Organizat ion Details LastModified Time Do you use any illicit or recreational drugs? Yes marijuana Information not available 02/08/2022 Do you or have you ever used any other forms of tobacco or nicotine? No Information not available 02/08/2022 What is your level of alcohol consumption? None Information not available 02/21/2014 Are you currently employed? Yes Information not available 02/21/2014 What is your occupation? [place] Information not available 02/21/2014 What is your exercise level? Moderate Information not available 02/21/2014 Mental Status None recorded. Family History Relationship Description Onset Age of this Age Resolved Age Notes LastModified by Organization Details LastModified Time Sister Leukemia (morphologic abnormality) 11 [email or web address] Not available 12:10:22 Paternal Grandmother Carcinoma in situ of breast [email or web address] Not available 08/06 12:10:22 Paternal Grandmother Alzheimer's disease 76 [email or web address] Not available 08/06 12:10:22 Medical History Condition Response Coronary Artery Disease N Kidney Cyst N Blood Diseases N Hyperthyroidism N Blood disorders N Blood Transfusion N MRSA N Emphysema N Depression N COPD N Blood Clots N Pneumonia N Premature N Peripheral Arterial Disease N Edema N TIA N Headaches/Migraines Y Anxiety Disorder N Obesity N Polyps N Infertility N Acid Reflux (GERD) Y Hematuria N Stroke N Neck Injury N Polio N Hospital Admission other than N Neurologic Disorder N Other Sleep Disorders N Rheumatoid Arthritis N Fibromyalgia N Abdominal Aortic Aneurysm Repair N Kidney Disease N Heart Conditions N Heart Disease/Heart Problems N Hospitalizations N Brain Tumors N Acne N Skin Problems N Eating Disorder N Meningitis N Constipation Y Tuberculosis N Cerebral Palsy N Myocardial Infarction N Asthma N Substance Abuse N Peripheral Vascular Disease N Vertigo N Sleep Disorder N Cirrhosis N Pulmonary Embolism N Chicken Pox Y Hematologic Disease N Flomax Use Past or Present N Anxiety/Depression N Thyroid Disease N Colon Cancer N Lung Disease N Glaucoma N Developmental or Behavioral Disorders N Bipolar N Pacemaker N Diverticulitis/Diverticulosis N Orthopedic Problems N Anesthesia Complications N Orthotics N Head Injury/Concussion N Congenital Anomalies N [place] Bite N Chronic Kidney Disease N Endometriosis N Liver Disease N Schizophrenia N Dialysis N Speech Delay N Chronic Obstructive Pulmonary Disease N Parkinson's Disease N Thyroid Problems N GI Problems Y Developmental Delay N Anemia N Multiple Sclerosis N Immune System Disorder N Colon Polyps N Heart Attack (RI) N Diabetes N Cardiomyopathy N Blood Transfusions N Heart Problems/Murmur N Eye Trauma N Congestive Heart Failure (CHF) N Valvular Heart Disease N Hyperlipidemia N Double Vision N Abuse/Domestic Violence N Hepatitis B N Lupus N Epilepsy/Seizures N Reflux/GERD N Aneurysm N Heart Disease N Bronchitis N Pre-Eclampsia N Hypertension N Heart Failure N Other N Gout N High Blood Pressure N Atrial Fibrillation N Kidney Stones N Head Trauma/Injury N Congenital Heart Disease N Spine Problems N Gastrointestinal Disease N Lung Mass N Sinusitis N Obstructive Sleep Apnea N Muscle, Joint, or Bone Problems N Autoimmune disease N Vision or Eye Problems N Arthritis N Blood Clot N Cancer N Seasonal allergies N Leg or Foot Ulcers N Raynaud's Disease N Aortic Aneurysm N Arrhythmia N Headaches Y Heart Problems N [place] N Ear or Hearing Problems N Hyperparathyroidism N Migraines Y Artificial Joints N Kidney or Bladder Problems Y NSAID Use Y Encephalitis N PTSD N Ulcers N Prostate Hypertrophy N Bleeding Disorder N AIDS/HIV N Urinary Tract Infection Y Back Problems N Allergies N Atrial Flutter N GERD/Reflux N Hepatitis N Autism Spectrum Disorder (ASD) N Breast Cancer N Hernia N Hypothyroidism N Breast Problem Y Genitourinary Disease N Deep Vein Thrombosis N Varicose Veins N Cystic Fibrosis N Hearing Loss N Developmental Problems N Carotid Disease N Vitamin D Deficiency N ADHD N Bladder or Kidney Problems N High Cholesterol N [place] N Valvular Abnormalities N Psychiatric/Mental Health Condition N Organ Transplant N Foot Deformity N Allergies/Hayfever N Dyslipidemia N Hyponatremia N Diabetic Eye Disease N Osteoporosis/Osteopenia N Back Pain N Proteinuria N Mental Illness N Neurological Problems N Ovarian Cancer N Bedwetting N Seizures/Epilepsy N Kidney Failure N Ocular trauma N Diverticulitis N Dementia N Sleep Apnea N Mental Problems N Warfarin Management N Osteoporosis N Gynecological History Statement/Question Response Abnormal Pap N Date of Last Mammogram 08/18/2015 Flow Heavy Date of LMP 02/02/2022 STIs/STDs N HPV Vaccine Y Duration of Flow (days) 5 Age at Menarche 12 Current Control Method Tubal Ligat ion Age at First Child 16 Frequency of Cycle (Q days) 28 Sexually Active? Y Menses Monthly Y Date of Last Pap Smear 02/08/2022 Sexual Problems? N LMP Approximate Desired Control Method Sterilizati on Obstetrics History GPAL:G 4 P 4 0 0 4 Type Value Multiple Births 0 Full Term 4 Induced 0 Spontaneous 0 Premature 0 Living 4 Ectopics 0 Total 4 Past Encounters Encounter ID Performer Location Encounter Start Date Encounter Closed Date Diagnosis/Indication Diagnosis SNOMED-CT Code Diagnosis ICD10 Code Diagnosis Note [id number] MD Nikita Hanson ([employer]DER) [address] [place] [address] [id number] 02/21/2014 14:39:59 02/23/2014 11:49:55 Gynecologic examination [id number] Irregular periods 82870565 Family his tory of Breast disease [id number] Kuldip Chacon MD [facility] ([facility]) [address] [place] [address] [id number] 08/07/2015 10:41:07 08/07/2015 15:48:39 Gynecologic examination 65268562 Z01.419 Family his tory of Breast disease 925812752 Z84.89 grandmothe r diagnosed at age 30-40 y, at age 71 y. Fibrocysti c disease of breast 54399150 N60.12 [id number] MD Nikita Trinh (Adult Med) [address] [place] [address] [id number] 0 09/20/2015 10:18:51 09/20/2015 11:31:30 History of polyp of colon 397073491 Z86.010 Will refer to GI - has been to [facility] in the past for colonoscop y Adult heal th examination 948013725 Z00.01 34YO female here to establish care with PCP Tobacco de pendence syndrome 29080043 F17.290 Advised to quit smoking Discussed quitting in the house and in her car first - she does not want to try the patches or Wellbutrin at this time [id number] MD Nikita Trinh (Adult Med) [address] [place] [address] [id number] 11/16/2015 16:03:29 11/16/2015 17:38:49 Tobacco dependence syndrome 01096828 F17.290 Advised to quit smoking Discussed quitting in the house and in her car first - she does not want to try the patches or Wellbutrin at this time [id number] MD Nikita Trinh (Adult Med) [address] [place] [address] [id number] 0 11/23/2015 10:31:56 11/23/2015 11:02:38 Tobacco dependence syndrome 41223222 F17.290 1/2ppd Advised to quit smoking Discussed quitting in the house and in her car first - she does not want to try the patches or Wellbutrin at this time Chronic sciatica 8824558 01 M54.31 from lower back to digits 3-5 on right foot - will begin with MRI Pleurisy 366802964 R09.1 Treated with NSAIDs, pain medication s, and rest out of the ER Segmental bullous emphysema 281301313 J43.9 History of polyp of colon 754021228 Z86.010 Patient has colonoscop y coming up [id number] MD Nikita Trinh (Adult Med) [address] [place] [address] [id number] 12/29/2015 11:31:20 12/29/2015 15:31:39 Disorder of lumbar disc 718093209 M51.9 Patient given number for pain management referral Buldging at right: L5-S1 [id number] MD Nikita Trinh (Adult Med) [address] [place] [address] [id number] 03/06/2016 14:03:25 03/06/2016 15:27:07 Disorder of lumbar disc 907961958 M51.9 Buldging at right: L5-S1 WIll refer to neurosurge ry at this time - spoke with referral nurse to do GERA Advised to contact Dr. Antonina Joy's office again Will do toradol and Dante at this time [id number] MD Nikita Trinh (Adult Med) [address] [place] [address] [id number] 09/17/2016 15:54:47 09/17/2016 18:24:51 Tobacco dependence syndrome 75642157 F17.290 1/2ppd Advised to quit smoking Body mass index 25-29 - overweight 928928467 Z68.27 Advised 30 minutes of exercise 5 days/week Advised to not drink her calories Advised 3 balanced meals/day with plenty of fruits and vegetables Subcutaneous nodule 9532 5000 R22.9 left lateral deltoid: 1cm, firm, mobile, non-TTP subcutaneo us nodule - causing patient pain - would like removed - will refer to general surgery Screening for disorder 330697983 Z13.9 [id number] ELIZABETH VARGAS ([employer]DER) [address] [place] [address] [id number] 0 02/08/2022 09:53:31 02/21/2022 15:14:39 Gynecologic examination 34224494 Z01.419 Cervical cancer screening: Last Pap 2016 NILM/HPV negative, updated todayBreas t cancer screening: Reviewed recommenda tions for initiation at age 40 with annual screening. Discussed SBEContrac eption: s/p BTLDiet/ex ercise: Counseled regarding importance of physical activity, healthy diet and appropriat e calcium intake.RTC in 1yr Screening for malignant neoplasm of breast 051251528 Z12.31 Last mammogram 2016 BIRADS 2. Routine mammogram screening ordered. History of urinary tract infection 5740366295 107 Z87.440 Patient has a history of UTIs. Today reports urinary frequency and retention. Discussed urine results with patient, negative. Symptoms likely due to cystocele, see below. Abnormal u terine bleeding 8913572978 9100 N93.9 Pt here with AUB x 4 months. Pt normally has regular cycle; however, has had 2 menses per month for the past 4 months. Will evaluate AUB further with labs and imaging. Venereal d isease screening 315635033 Z11.3 Patient is requesting STI check. Will notify with results and treat as indicated. Safe sex practices discussed. Prolapse o f female genital organs 64415097 N81.9 Exam reveals mild anterior prolapse, overall laxity of pelvic floor muscles, possible posterior prolapse. Discussed conservati ve measures (PFPT, pessary) and surgical interventi ons. Will refer to urogynecol ogy for further evaluation and management . Furuncle 905397150 L02.9 2 Patient has boil x 8 months. Exam reveals 3cm indurated partially fluctuant lesion consistent with furuncle. No drainage or surroundin g erythema. Will prescribe bactrim for infection. Advised to stop shaving and use warm compresses and gentle exfoliatio n daily. Health Concerns Section Related Observation LastModified by Organization Detai ls LastModified Time None Recorded Concern Status LastModified by Organization Details LastModified Time None Recorded Advance Directives Directive N: Payers Insurance Date Sequence Insurance Name Policy Number Policy Hare Covered Member ID Hare Member ID Guarantor Name 10/23/2015 1 [facility] (MEDICAID HMO) Colleen Amezquita [id number] Colleen Amezquita 02/21/2022 1 [facility] PRIOR TO 08/24/2020 (MEDICAID REPLACEMENT - HMO) Colleen Amezquita [id number] Colleen Amezquita 10/31/2015 2 [place] [facility] [place] OF PUBLIC AID Colleen Amezquita [id number] Colleen Amezquita 02/21/2022 1 [facility] ON OR AFTER 08/24/20 (MEDICAID REPLACEMENT - HMO) Colleen Amezquita [id number] Colleen Amezquita Notes Date Note Type Note Provider Name and Address Organization Details Recorded Time 11/23/2015 text/html Lower LegReporte d bypatient.Locatio n:right Quality:aching Severity:moderate Duration:1 years Timing:chronic Context:cannot identify Alleviating Factors:nothing helps Aggravating Factors:cannot identify Associated Symptoms:no weakness; no numbness; no tingling; no swelling; no redness; no warmth; no ecchymosis; no catching/locking; no popping/clicking; no buckling; no grinding; no instability; no drainage; no fever; no chills; no weight loss; no change in bowel/bladder habits;radiation down leg(3-5 digits - feels like a nail in her right foot) Previous Surgery:none Prior Imaging:x ray (out of the ER - told that she has sciatica and that it should improve) Previous Injections:none Previous PT:none Here to go over ER note - showed bullous emphysema and pleurisy. Patient taking ibuprofen Radha Romo PA-C Attn: Accounting,[address] [place], [address], [facility] - [facility] 11/23/2015 11:02:08 12/29/2015 text/html Lower LegReporte d bypatient.Locatio n:right Quality:aching Severity:moderate Duration:1 years Timing:chronic Context:cannot identify Alleviating Factors:nothing helps Aggravating Factors:cannot identify Associated Symptoms:no weakness; no numbness; no tingling; no swelling; no redness; no warmth; no ecchymosis; no catching/locking; no popping/clicking; no buckling; no grinding; no instability; no drainage; no fever; no chills; no weight loss; no change in bowel/bladder habits;radiation down leg(3-5 digits - feels like a nail in her right foot) Previous Surgery:none Prior Imaging:x ray (out of the ER - told that she has sciatica and that it should improve) Previous Injections:none Previous PT:noneNotes:Here for MRI results Radha Romo PA-C Attn: Accounting,[address] [place], [address], [facility] - [facility] 12/29/2015 12:41:31 03/06/2016 text/html Lower LegReporte d bypatient.Locatio n:right Quality:aching Severity:moderate Duration:10 days (acute on chronic) Timing:acute (on chronic) Context:fall Alleviating Factors:nothing helps Aggravating Factors:sitting; standing; lying down; walking; lifting; carrying; twisting; bending/squatting ; pushing/pulling; throwing; ROM; weight bearing; exercise; changing clothes; getting out of bed; going from sit to stand; upstairs; downstairs Associated Symptoms:no weakness; no numbness; no tingling; no swelling; no redness; no warmth; no ecchymosis; no catching/locking; no popping/clicking; no buckling; no grinding; no instability; no drainage; no fever; no chills; no weight loss; no change in bowel/bladder habits;radiation down leg(3-5 digits - feels like a nail in her right foot - states that she feels like her right leg from the knee down is cold) Previous Surgery:none Prior Imaging:MRI (12/2015: buldging disc L5/S1); CT scan (02/2016: buldging disc L5/S1) Previous Injections:none Previous PT:none Work Related:no Working:noNotes:Jana lozoya is here for an ER f/u. She has a hx/o buldging disc. She states that 10 days ago she was going down the steps into her basement to do laundry when her right leg gave out and she fell onto the concrete floor. States that she has been in and out of the ER these last 10 days because she cannot get an relief of the pain. In the past the pain has been controlled with a toradol shot and then oral pain medication but this time that is not the case. She tried calling Dr. Antonina Joy's office for an appointment for pain management but they never got back to her. Radha Romo PA-C Attn: Accounting,[address] [facility], [place], [address], [facility] 03/06/2016 14:33:14 09/17/2016 text/html 35YO female here c/o cyst of right shoulder x 3 months and states that it is growing. initially it was not bothering her, but now with ROM and lifting objects she has radiating pain down her arm into her hand and up to her shoulder and she would like to have it removed. States that she has a hx/o growing cysts that have been removed and her mother and sister have had them removed from their arms as well. She is doing very well following her back surgery by Dr. Ruiz and is very grateful for the surgery Radha Romo PA-C Attn: Accounting,[address] [facility], [place], [address], [facility] 09/17/2016 16:37:58 02/08/2022 text/html Annual GYNReported bypatient.History :41y/o F presents for annual WWE. Pt reports boil growing on left hip for the past 8 months. She uses a razor for groin hair. Patient does not notice any discharge or itching. Menstrual cycle:Intervals less than 21 days; Patient reports having regular periods, about 28 days apart normally. For the past 4 months she has had 2 periods per month with associated worsening abdominal cramping. Urinary symptoms:Increase d urinary frequency; Patient has urinary retention secondary to noticing increased vaginal fullness and pressure for the past 6-8 months. Patient does not notice a mass and has not had to manually reduce any mass. Vulva:Painful genital lesion Vagina:Normal vaginal discharge Breast:No breast pain; No breast lump; No nipple discharge Current Contraception:Tub al ligation Sexual complaints:No sexual complaints; No pain during intercourse; Normal libido Menopausal Symptoms:No menopausal symptoms; Normal vaginal lubrication Psychological symptoms:No depression; No anxiety; No PMDD Preventive measures:Encourag e self breast examination; Encourage regular exercise; Encourage no tobacco use; Encourage regular mammograms starting age 40; Needs to schedule mammogram ELIZABETH VARGAS Attn: Accounting,[address] [place], [address], [facility] 02/15/2022 10:55:49 OBGyn Episode Ob Episode Information Episode Created Date Number of Fetuses Patient Bloodtype Patient rh Status Prepregnancy Weight lbs Domestic Partner Domestic Partner Phone Father Name Parts Processor Status 08/07/19 16 1 CLOSED Fetus Data First Name Last Name Admitted to NICU Weight (g) Sex Living Outcome Pediatric Complications Fetus ID Race Codes Race Delivery Type F Full Term [id number] Vaginal Javier Calculation Initial Javier Date Initial Exam Date Initial Exam Provider Initial Ultrasound Date Last Menstrual Period Date Ultra Sound Weeks Gestation 0 Eighteen To Twenty Week Javier Update Ultra Sound Date Fundal Height At Umbil Quickening Date Ultra Sound Latest Weeks Gestation Final Javier Confirmed By Final Javier Confirmed Date Final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
--- OUTSIDE RECORDS SUMMARY | 2024-08-12 22:53 | XMS_ITS | CONTINUITY OF CARE DOCUMENT ---
Author Name bre suzettehanny Address Unknown Organization [facility] Address [address] [facility] [address] [place] [address] Phone [phone] Care Team Providers Care Real Estate Representative Name Role Phone Brant HAYES, Honorio Unavailable KELLEY DE LEÓN MD Unavailable KELLEY DE LEÓN MD Unavailable INSURANCE PROVIDERS Payer name Policy type / Coverage type [place] red alliance party ID HEALTHCARE AND FAMILY SERVICES Medicaid 0 [id number]
[2024-08-12 22:57] VITALS: BP 147/69; PULSE 76; RESP 18; TEMP 36.7; O2SAT 100
[2024-08-13] VITALS (8 sets, daily range): BP systolic 133–137; BP diastolic 65–79; O2SAT 97–100
--- NOTE | 2024-08-13 00:18 | PC.NURSE ---
edp aware pt in pain and pain medication has been requested.
--- NOTE | 2024-08-13 00:24 | ECG_ITS ---
Test Date: 2024-08-13 00:59:55 Measurements Intervals [place] Rate: 55 P: 31 SD: 178 QRS: 4 QRSD: 82 T: 38 QT: 453 QTc: 436 Interpretive Statements SINUS BRADYCARDIA BASELINE ARTIFACT- II, III, AVR, AVF BORDERLINE ECG No previous ECG available for comparison Electronically Signed On 08-13-2024 07:09:15 CDT by Lino Orozco D.O.
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
--- OUTSIDE RECORDS SUMMARY | 2024-08-13 00:36 | XMS_ITS | Clinical Summary ---
Author Organization [facility] Address [address] [place] [address] Care Team Providers Care Feather Duster Winder Name Role Phone Unavailable Primary Care Provider Unavailabl e Social History Tobacco Use Types Packs/Day Years Used Date Smoking Tobacco: Never Assessed Comments Unknown Sex and Gender Information Value Date Recorded Sex Assigned at Not on file Legal Sex Female 7:47 PM CDT Gender Identity Not on file Sexual Orientation Not on file Last Filed Vital Signs Vital Sign Reading Time Taken Comments Blood Pressure 122/82 06/25/2016 3:46 PM CDT Pulse 80 06/25/2016 3:46 PM CDT Temperature - - Respiratory Rate - - Oxygen Saturation - - Inhaled Oxygen Concentration - - Weight 79.2 kg (174 lb 9.6 oz) 06/25/2016 3:46 P M CDT Height 162.6 cm (5' 4) 06/25/2016 3:46 PM CDT Body Mass Index 29.97 06/25/2016 3:46 PM CDT Plan of Treatment Health Maintenance Due Date Last Done Comments Cervical Cancer Screening Pa p Smear (Age 30 to 64) Every 3 Years 1981 Annual Physical 1984 Hepatitis C 12/16/1999 DTaP, Tdap and Td Vaccines ( 1 - Tdap) 2000 Hepatitis B Vaccines (1 of 3 - 19+ 3-dose series) 2000 Cervical Cancer Screening Pa p with HPV Testing (Age 30 to 64) Every 5 Years 12/16/2011 Cervical Cancer Screening with HPV 12/16/2011 Mammogram Screening 2021 COVID-19 Vaccine ( - 2023-2 5 season) 2023 HPV Vaccines Aged Out No longer eligi ble based on patient's age to complete this topic Meningococcal B Vaccine Aged Out No l onger eligible based on patient's age to complete this topic Meningococcal Vaccine Aged Out No elida kishore eligible based on patient's age to complete this topic Pneumococcal Vaccine: Pediat rics (0 to 5 Years) and At-Risk Patients (6 to 49 Years) Aged Out No longer eligible b ased on patient's age to complete this topic RSV Immunizations Under 20 Months Aged Out No longer eligible based on patient's age to complete this topic
--- OUTSIDE RECORDS SUMMARY | 2024-08-13 00:36 | XMS_ITS | CONTINUITY OF CARE DOCUMENT ---
Author Name bre suzettehanny Address Unknown Organization [facility] Address [address] [address] [place] [address] Phone [phone] Care Team Providers Care Sql Developer Name Role Phone Brant HAYES, Honorio Unavailable [phone] KELLEY DE LEÓN MD Unavailable KELLEY DE LEÓN MD Unavailable [phone] INSURANCE PROVIDERS Payer name Policy type / Coverage type [place] red green party ID HEALTHCARE AND FAMILY SERVICES Medicaid 0 [id number]
[2024-08-13] MEDS: KETOROLAC 15 MG/ML VIAL (*BKC) IV PUSH (00:39)
[2024-08-13] MEDS: MORPHINE SULFATE (*CRX) 4 MG/ML INJ IV PUSH ×2 (00:39→02:50)
[2024-08-13] MEDS: SODIUM CHLORIDE 0.9% IV 1,000 ML 999 ML IV CONT (00:40)
[2024-08-13 00:47] LABS: Basophils Percent Auto 0.4 % (0.2-1.2); Eosinophils Absolute Auto 0.2 K/mm3 (0-0.3); Eosinophils Percent Auto 1.8 % (0-4.4); Hematocrit 40.1 % (37.0-47.0); Hemoglobin 13.2 g/dL (12.0-15.0); Immature Granulocyte Absolute 0.06 K/mm3 (0.00-0.031); Immature Granulocyte Percent A 0.6 % (0-0.5); Lymphocytes Absolute Auto 3.23 K/mm3 (0.9-3.2); Mean Corpuscular HGB Conc 32.9 g/dl (32-36); Mean Corpuscular Hemoglobin 30.9 pg (26-34); Mean Corpuscular Volume 93.9 fl (80-100); Mean Platelet Volume 9.7 fl (7.4-10.4); Monocytes Absolute Auto 0.9 K/mm3 (0.1-0.6); Monocytes Percent Auto 8.4 % (2.6-8.5); Neutrophils Absolute Auto 6.3 K/mm3 (1.3-6.7); Neutrophils Percent Auto 58.8 % (45.5-73.1); Platelet Count Result 234 k/mm3 (150-375); Red Blood Count 4.27 M/mm3 (4.2-5.4); Red Cell Distribution Width 13.3 % (11.5-14.5); White Blood Count 10.8 K/mm3 (4.5-10.0)
[2024-08-13 00:56] LABS: Alanine Aminotransferase 23 U/L (6-35); Albumin Level 4.1 g/dL (3.5-5.1); Alkaline Phosphatase 60 U/L (38-126); Anion Gap 4 mmol/L (4-12); Aspartate Amino Transferase 33 U/L (14-36); Bilirubin,Total 0.2 mg/dL (0.2-1.3); Blood Urea Nitrogen 12 mg/dL (7-17); Calcium 8.5 mg/dL (8.4-10.2); Carbon Dioxide 26 mmol/L (22-30); Chloride 108 mmol/L (98-107); Estimated CRCL calculation 93 ml/min; Estimated Glomerular Filt Rate > 60; Glucose 104 mg/dL (65-110); Lactic Acid Reflex 0.9 mmol/L (0.7-2.0); Potassium 3.7 mmol/L (3.4-5.0); Sodium 138 mmol/L (137-145); Total Protein 6.9 g/dL (6.3-8.2)
[2024-08-13 01:09] LABS: Troponin I < 0.012 ng/mL (0.000-0.034)
[2024-08-13 01:23] LABS: Add Urine Microscopic? YES; Appearance Urine Clear (Clear); Bacteria Urine None Seen /hpf; Bilirubin Urine Negative (Negative); Blood Urine 3+ (Negative); Color Urine Yellow (Yellow); Glucose Urine UA Negative (Negative); Ketones Urine Negative (Negative); Leukocyte Esterase Ur 2+ LEU/UL (Negative); Nitrate Urine Negative (Negative); Non Pathogenic Casts 0-2; Protein Urine Negative (Negative); RBC Urine 51-100 /hpf (0-2); Specific Grav Ur 1.018 (1.001-1.035); Squamous Epithelial Cell Urine None Seen /hpf (Few); WBC Urine 21-50 /hpf (0-3); pH Urine 6.5 (5.0-9.0)
[2024-08-13 03:13] LABS: BEDSIDEPREGUCG Negative (Negative)
== END 2024-08-13 04:20 | disposition home or self-care (01) ==
PROVIDERS: Emergency Provider Emergency Medicine
DX: S16.1XXA Strain of muscle, fascia and tendon at neck level, initial encounter (principal); R10.32 Left lower quadrant pain; K31.84 Gastroparesis; F17.210 Nicotine dependence, cigarettes, uncomplicated; M47.812 Spondylosis without myelopathy or radiculopathy, cervical region; M48.07 Spinal stenosis, lumbosacral region; M51.24 Other intervertebral disc displacement, thoracic region; V49.40XA Driver injured in collision with unspecified motor vehicles in traffic accident, initial encounter
CPT/HCPCS: 36415; 70450; 71260; 72125; 72129; 72132; 73030; 74177; 80053; 81001; 81025; 83605; 84484; 85025; 87086; 93005; 96361; 96374; 96375; 99284; J1885; J2270; J7030; Q9967

== ENCOUNTER 2024-09-24 08:27 | Outpatient (CLI) | payer OTHER, SELFPAY ==
--- NOTE | ~2024-09-24 | MM_ITS ---
EXAMINATION: MM screening elizabeth BI w jose HISTORY: Screening TECHNIQUE: Craniocaudal and mediolateral oblique 3-D tomosynthesis images were obtained and synthetic 2-D images were generated. CAD analysis was submitted and interpreted. COMPARISON: No prior mammogram is available for comparison at this institution. BREAST PARENCHYMAL COMPOSITION: Dense: The breasts are heterogeneously dense, which may obscure small masses FINDINGS: There is no evidence of suspicious mass, calcification, or architectural distortion to sugg est malignancy in either breast. There has been no suspicious interval change. IMPRESSION: 1. No mammographic evidence of malignancy. 2. Recommend routine screening mammography in one year. BI-RADS Category 1: Negative Reviewed, dictated and finalized at location []
== END 2024-09-24 08:28 | disposition home or self-care (01) ==
LOC: ANHIMG 08:28
PROVIDERS: PCP Student in an Organized Health Care Education/Training Program; Visit Provider Student in an Organized Health Care Education/Training Program
DX: Z12.31 Encounter for screening mammogram for malignant neoplasm of breast (principal)
CPT/HCPCS: 77063; 77067